=== PATIENT | female | born 1940 | race Caucasian/White ===

== ENCOUNTER 2019-05-20 18:30 | Inpatient (IN) | payer OTHER ==
--- NOTE | 2019-05-20 19:45 | PDOC ---
History of Present Illness - General Chief Complaint: Weakness Stated Complaint: WEAKNESS History Source: Patient, Family (daughter, granddaughters) Exam Limitations: Dementia, Language Barrier - History of Present Illness Initial Comments: 05/20/19 19:40 78yo F with PMH of DM, HTN, HLD, Arthritis, PAD?, Thyroid Goiter? medical history presenting to ED for weakness. Patient was at home in her usual state of health and around 1630 went to sit outside. Great granddaughter went to check on patient 30m later and saw that she was slumped over and weak. Patient recently moved here from [place] 1m ago and has not had health care here due to insurance problems. She has been without her medications during this period of time. Patient was living with one of her daughters in a hotel in [place]. Patient says she feels tired. Great granddaughter also noticed dark stools 3d ago. Denies abdominal pain, chest pain, sob, headache, changes in vision, numbness/tingling, fever, chills, n/v/d. No use of NSAIDs. PMD: none PMH: see hpi PSH: appendectomy Allergies: nkda Social: denies Meds: unknown Great Granddaughter: Lisa [phone] Granddaughter: Lidia [phone] Past History - Past Medical History Allergies/Adverse Reactions: Allergies Allergy/AdvReac Type Severity Reaction Status Date / Time No Known Allergies Allergy Verified 05/20/19 18:55 Asthma: Yes COPD: No Diabetes: Yes HTN: Yes - Suicide/Smoking/Psychosocial Hx Smoking History: Never smoked Have you smoked in the past 12 months: No Information on smoking cessation initiated: No Hx Alcohol Use: No Drug/Substance Use Hx: No Review of Systems - Review of Systems Constitutional: Yes: Weakness. No: Chills, Fever HEENTM: No: Symptoms Reported Respiratory: No: Cough, Shortness of Breath Cardiac (ROS): Yes: Lightheadedness. No: Chest Pain, Palpitations, Syncope, Chest Tightness : No: Symptoms Reported Musculoskeletal: No: Symptoms Reported Integumentary: No: Symptoms Reported Neurological: No: Symptoms reported *Physical Exam - Vital Signs Last Vital Signs Temp Pulse Resp BP Pulse Ox 98.3 F 99 H 16 136/75 100 05/20/19 18:40 05/20/19 18:40 05/20/19 18:40 05/20/19 18:40 05/20/19 18:40 - Physical Exam General Appearance: Yes: Appropriately Dressed, Obese. No: Apparent Distress HEENT: positive: EOMI, BRISA, Pale Conjunctivae, Other (dry oral mucosa) Neck: positive: Trachea midline, Supple. negative: Lymphadenopathy (R), Lymphadenopathy (L) Respiratory/Chest: positive: Lungs Clear, Normal Breath Sounds Cardiovascular: positive: Regular Rhythm, Regular Rate, S1, S2, Systolic Murmur. negative: Edema, JVD Vascular Pulses: Dorsalis-Pedis (R): 1+, Doralis-Pedis (L): 1+ Gastrointestinal/Abdominal: positive: Normal Bowel Sounds, Soft. negative: Tender, Distended, Guarding, Rebound, Tenderness, Hernia Rectal Exam: positive: normal rectal tone, melena. negative: hemorrhoids Musculoskeletal: negative: CVA Tenderness Extremity: negative: Normal Capillary Refill, Swelling, Calf Tenderness Integumentary: positive: Dry, Warm. 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 negative: Fully Oriented (baseline) ED Treatment Course - LABORATORY CBC & Chemistry Diagram: 05/20/19 19:55 05/20/19 19:55 - RADIOLOGY Radiology Studies Ordered: Category Date Time Status CHEST X-RAY PORTABLE* [RAD] Stat Radiology 05/20/19 19:34 Ordered Medical Decision Making - Medical Decision Making 05/20/19 19:43 78yo F with unknown medical history presenting to ED for weakness. Patient was at home in her usual state of health and around 1630 went to sit outside. Granddaughter went to check on patient 30m later and saw that she was slumped over and weak. Patient recently moved here from [place] 1m ago and has not had health care here due to insurance problems. She has been without her medications during this period of time. Patient was living with one of her daughters in a hotel in [place]. Patient says she feels tired. Granddaughter also noticed dark stools on a few occasions. Denies abdominal pain, chest pain, sob, headache, changes in vision, numbness/tingling, fever, chills, n/v/d. Vitals: hr 99, afebrile, normotensive ddx includes but not limited to gi bleed, acs, anemia, cva/tia, infection, heat exhaustion, electrolyte abnormality, metabolic disturbance, malignancy will order labs, ts, guaiac, cxr, ekg, ua, ucx. iv fluids will obtain collateral from family Per daughter who is in [place], patient was with her and her son, but there was a fallout with the son. She will try to send over documents to great granddaughter. ekg; sinus at 94bpm, per 372? qtc 477. diffuse st depressions in percodial annd lateral leads, no reciprocal madina. hgb 6.5, will start transfusion, family consented. pepcid bolus. labs show k 2.5, will give KCl. Trop 0.48 with normal CK-MB, likely 2/2/ demand. will repeat ekg. cr 1.9 (no priors) likley 2/2 bleed; is getting hydration and prbc's ua positive for infection, will start ceftriaxone. angle admit for gi bleed, anemia 2/2 gi bleed and uti. vitals hav been stable, pt has not been hypotensive, she is awake and alert. 05/20/19 22:35 rpt ekg: sinus, regular rhythm. no madina. depressions still noted in lateal leads however less pronouced. no madina . accepted by hospitalist. 05/20/19 22:40 *DC/Admit/Observation/Transfer Diagnosis at time of Disposition: GI bleed Qualifiers: GI bleed type/associated pathology: melena Qualified Code(s): K92.1 - Melena Anemia Qualifiers: Anemia type: unspecified type Qualified Code(s): D64.9 - Anemia, unspecified UTI (urinary tract infection) Qualifiers: Urinary tract infection type: site unspecified Hematuria presence: without hematuria Qualified Code(s): N39.0 - Urinary tract infection, site not specified - Discharge Dispostion Condition at time of disposition: Stable Decision to Admit order: Yes - Referrals Referrals: Greyson Avendaño MD [Primary Care Provider] - - Patient Instructions - Post Discharge Activity
[2019-05-20 20:15] LABS: BASO % 0.7 % (0-2.0); EOS % 1.4 % (0-4.5); LYMPH % 4.9 % (8-40); MCH 24.7 pg (25.7-33.7); MCHC 30.8 g/dl (32.0-36.0); MEAN CELL VOLUME 80.2 fl (80-96); MEAN PLT VOLUME 8.6 fl (7.5-11.1); MONO % 6.7 % (3.8-10.2); NEUT % 86.3 % (42.8-82.8); PLATELET COUNT 155 K/MM3 (134-434); RBC 2.63 M/mm3 (3.60-5.2); RDW 18.2 % (11.6-15.6); WHITE BLOOD COUNT 6.5 K/mm3 (4.0-10.0)
[2019-05-20] MEDS ORDERED: PANTOPRAZOLE SODIUM 40 MG VIAL IVPUSH ONE (20:22)
[2019-05-20] MEDS ORDERED: SODIUM CHLORIDE 1,000 ML IV STA (20:23)
[2019-05-20 20:30] LABS: HEMATOCRIT 21.1 % (32.4-45.2); HEMOGLOBIN 6.5 GM/dL (10.7-15.3)
[2019-05-20 20:36] LABS: INR 1.08 (0.83-1.09); PROTHROMBIN TIME (PATIENT) 12.7 SEC (9.7-13.0)
[2019-05-20] MEDS ORDERED: PANTOPRAZOLE SODIUM 40 MG/100 ML BAG IVPB ONE (20:36)
[2019-05-20 20:55] LABS: ALBUMIN 3.7 g/dl (3.4-5.0); BILIRUBIN,TOTAL 0.3 mg/dL (0.2-1); BLOOD UREA NITROGEN 13.6 mg/dL (7-18); CALCIUM 8.6 mg/dL (8.5-10.1); CREATININE 1.9 mg/dL (0.55-1.3); MAGNESIUM 2.3 mg/dL (1.8-2.4); TOT PROT 7.8 g/dl (6.4-8.2)
[2019-05-20 20:58] LABS: POTASSIUM 2.5 mmol/L (3.5-5.1)
--- NOTE | 2019-05-20 21:22 | PDOC ---
Documentation entered by Yulisa Bradley SCRIBE, acting as scribe for Xiao Whittington DO. Xiao Whittington DO: This documentation has been prepared by the Mirna trammell Adrianna, SCRIBE, under my direction and personally reviewed by me in its entirety. I confirm that the documentation accurately reflects all work, treatment, procedures, and medical decision making performed by me. Attending Attestation - Resident Resident Name: Jazmyne Roberto - ED Attending Attestation I have performed the following: I have examined & evaluated the patient, The case was reviewed & discussed with the resident, I agree w/resident's findings & plan - HPI HPI: The patient is an 78 year old female, with unknown medical history, who presents to the ED for evaluation of dark stool for one week, and weakness for one day. Patient was sitting outside earlier today, and was found by her granddaughter a half hour later slumped over and malaised. She reports feeling fatigued while in the ED. Granddaughter also notes dark, tarry stools over the past week. Allergies: NKA, NKDA PCP: Dr. Avendaño - Physicial Exam PE: Agree with resident exam. - Medical Decision Making 05/20/19 21:21 78-year-old female with chief complaint of weakness recently relocated from [place] Labs positive for significant anemia requiring transfusion Patient's EKG shows LVH with strain pattern, unfortunately there is no old available for comparison Troponin is positive Blood transfusion to be administered from the emergency department with admission to medical service for further management
[2019-05-20 21:25] LABS: HYALINE CASTS 49 /lpf (0-8); URINE APPEARANCE CLOUDY; URINE BACTERIA 8600.1 /hpf (NEGATIVE); URINE BILIRUBIN NEGATIVE (NEGATIVE); URINE COLOR YELLOW; URINE GLUCOSE (UA) NEGATIVE (NEGATIVE); URINE KETONE NEGATIVE (NEGATIVE); URINE LEUK ESTERASE 2+ (NEGATIVE); URINE NITRITE POSITIVE (NEGATIVE); URINE PROTEIN 1+ (NEGATIVE); URINE RBC 1 /hpf (0-4); URINE WBC 84 /hpf (0-5)
[2019-05-20] MEDS ORDERED: KCL 10 MEQ IVPB 10 MEQ/100 ML INFUS.BAG IVPB ONE (21:41)
[2019-05-20] MEDS ORDERED: CEFTRIAXONE 1 GM in DEXTROSE 5%-WATER - 100 ML IVPB ONE (21:48)
[2019-05-20] MEDS: KCL 10 MEQ IVPB 10 MEQ/100 ML INFUS.BAG IVPB SCH ×2 (22:16→22:43)
[2019-05-20] MEDS ORDERED: CEFTRIAXONE 1 GM/50 ML BAG ONE (22:48)
[2019-05-21] MEDS ORDERED: KCL 10 MEQ IVPB 10 MEQ/100 ML INFUS.BAG IVPB ONE ×4 (00:34→18:25)
[2019-05-21] MEDS: KCL 10 MEQ IVPB 10 MEQ/100 ML INFUS.BAG IVPB SCH ×4 (00:41→18:27)
[2019-05-21 05:44] LABS: BASO % 0.3 % (0-2.0); EOS % 2.4 % (0-4.5); HEMATOCRIT 22.4 % (32.4-45.2); HEMOGLOBIN 7.3 GM/dL (10.7-15.3); LYMPH % 15.9 % (8-40); MCH 26.7 pg (25.7-33.7); MCHC 32.8 g/dl (32.0-36.0); MEAN CELL VOLUME 81.3 fl (80-96); MEAN PLT VOLUME 8.7 fl (7.5-11.1); MONO % 6.2 % (3.8-10.2); NEUT % 75.2 % (42.8-82.8); PLATELET COUNT 144 K/MM3 (134-434); RBC 2.75 M/mm3 (3.60-5.2); RDW 17.3 % (11.6-15.6); WHITE BLOOD COUNT 5.9 K/mm3 (4.0-10.0)
--- NOTE | 2019-05-21 06:45 | HP ---
Admitting History and Physical - Primary Care Physician PCP: Greyson Avendaño S - Admission Chief Complaint: Near Syncope History of Present Illness: This is a 78 y/o woman with a PMHx of DM, HTN, HLD, Arthritis, PAD?, Thyroid Goiter? medical history presenting to ED for weakness. Patient was at home in her usual state of health and around 1630 went to sit outside. Great granddaughter went to check on patient 30m later and saw that she was slumped over and weak. Patient recently moved here from [place] 1m ago and has not had health care here due to insurance problems. She has been without her medications during this period of time. Patient was living with one of her daughters in a hotel in [place]. Patient says she feels tired. Great granddaughter also noticed dark stools 3d ago. Denies abdominal pain, chest pain , sob, headache, changes in vision, numbness/tingling, fever, chills, n/v/d. No use of NSAIDs. History Source: Family Member Limitations to Obtaining History: Clinical Condition, Language Barrier (Yoruba speaking) - Past Medical History Cardiovascular: Yes: HTN, Hyperlipdemia, Other (PAD) Musculoskeletal: Yes: Osteoarthritis Endocrine: Yes: Diabetes Mellitus - Past Surgical History Past Surgical History: Yes: Cholecystectomy Additional Past Surgical History: C- Section - Smoking History Smoking history: Never smoked Have you smoked in the past 12 months: No - Alcohol/Substance Use Hx Alcohol Use: No History of Substance Use: reports: None - Social History Usual Living Arrangement: Yes: With Child ADL: Family Assistance History of Recent Travel: Yes ([place]) Home Medications - Allergies Allergies/Adverse Reactions: Allergies Allergy/AdvReac Type Severity Reaction Status Date / Time No Known Allergies Allergy Verified 05/20/19 18:55 - Home Medications Home Medications: Ambulatory Orders Albuterol 2.5/Ipratropium 0.5 [Duoneb -] 1 amp NEB Q6H PRN #0 amp 05/27/19 Amlodipine Besylate [Norvasc -] 5 mg PO DAILY tablet 05/27/19 Cefuroxime Axetil [Ceftin -] 500 mg PO Q12H #10 tablet 05/27/19 Ferrous Sulfate [Feosol] 325 mg PO BIDWM ud 05/27/19 Insulin Sliding Scale [Novolog Vial Sliding Scale -] 1 vial SQ TIDAC units Levothyroxine [Synthroid -] 50 mcg PO DAILY@0700 tablet 05/27/19 Pantoprazole Sodium [Protonix -] 40 mg PO BID tablet.ec 05/27/19 Family Disease History - Family Disease History Family History: Unable to Obtain Review of Systems Unable to obtain ROS, reason: Clinical Condition Physical Examination Vital Signs: Vital Signs Temperature 97.2 F L 05/21/19 05:30 Pulse Rate 56 L 05/21/19 05:30 Respiratory Rate 12 05/21/19 05:30 Blood Pressure 166/59 L 05/21/19 05:30 O2 Sat by Pulse Oximetry (%) 97 05/21/19 05:30 Constitutional: Yes: No Distress, Calm Eyes: Yes: WNL, Conjunctiva Clear, EOM Intact, PERRL HENT: Yes: WNL, Atraumatic, Normocephalic Neck: Yes: WNL, Supple, Trachea Midline Cardiovascular: Yes: WNL, Regular Rate and Rhythm, S1, S2 Respiratory: Yes: WNL, Regular, CTA Bilaterally Gastrointestinal: Yes: Normal Bowel Sounds, Soft, Other (RUQ Scar) ...Rectal Exam: Yes: Deferred (patient declined) Renal/: Yes: Incontinence Breast(s): Yes: WNL Musculoskeletal: Yes: WNL Extremities: Yes: WNL Edema: No Peripheral Pulses WNL: Yes Neurological: Yes: Alert, Confusion, Cran Nerves II-XII Intact ...Motor Strength: WNL Psychiatric: Yes: Alert Labs: CBC, BMP 05/21/19 05:26 05/20/19 19:55 Imaging - Results Chest X-ray: Image Reviewed EKG: Image Reviewed Problem List - Problems (1) GI bleed Code(s): K92.2 - GASTROINTESTINAL HEMORRHAGE, UNSPECIFIED Qualifiers: GI bleed type/associated pathology: melena Qualified Code(s): K92.1 - Melena (2) Anemia Code(s): D64.9 - ANEMIA, UNSPECIFIED Qualifiers: Anemia type: unspecified type Qualified Code(s): D64.9 - Anemia, unspecified (3) Near syncope Code(s): R55 - SYNCOPE AND COLLAPSE (4) HAILE (acute kidney injury) Code(s): N17.9 - ACUTE KIDNEY FAILURE, UNSPECIFIED (5) HTN (hypertension) Code(s): I10 - ESSENTIAL (PRIMARY) HYPERTENSION (6) HLD (hyperlipidemia) Code(s): E78.5 - HYPERLIPIDEMIA, UNSPECIFIED Assessment/Plan This is a 78 y/o woman admitted to Telemetry for GI Bleed, Near Syncope. Plan: Admit to Telemetry Cardiac Monitoring Serial Enzymes Echo Serial CBCs Appreciate GI Consult Appreciate Cardiology consult Appreciate Nephrology consult Appreciate Hematology consult +Stool Occult PRBCs ordered- given in ED Protonix IV Hold home medications for now Fall Precautions FEN NS fluids Replete lytes prn NPO DVT ppx SCDs Hold AC secondary to GIB Dispo: Requires Inpatient Care Visit type - Emergency Visit Emergency Visit: Yes ED Registration Date: 05/20/19 Care time: The patient presented to the Emergency Department on the above date and was hospitalized for further evaluation of their emergent condition. - New Patient This patient is new to me today: Yes Date on this admission: 05/20/19 - Critical Care Critical Care patient: No
[2019-05-21 08:44] LABS: ALBUMIN 3.4 g/dl (3.4-5.0); BILIRUBIN,TOTAL 0.5 mg/dL (0.2-1); BLOOD UREA NITROGEN 13.1 mg/dL (7-18); CALCIUM 8.2 mg/dL (8.5-10.1); CREATININE 1.7 mg/dL (0.55-1.3); PHOSPHOROUS 2.6 mg/dL (2.5-4.9); TOT PROT 7.4 g/dl (6.4-8.2)
--- NOTE | 2019-05-21 08:46 | PN ---
Progress Note (short form) - Note Progress Note: Patient will be transferred to service team for management of care.
--- NOTE | 2019-05-21 09:50 | EKG ---
Test Reason : Blood Pressure : / mmHG Vent. Rate : 070 BPM Atrial Rate : 070 BPM P-R Int : 000 ms QRS Dur : 100 ms QT Int : 480 ms P-R-T Axes : 000 003 -18 degrees QTc Int : 518 ms nsr 1st degree AVB MODERATE VOLTAGE CRITERIA FOR LVH, MAY BE NORMAL VARIANT ABNORMAL ECG WHEN COMPARED WITH ECG OF 20-MAY-2019 18:47, Confirmed by GABRIELA PIERRE, EVA ([id number]) on 05/21/2019 9:49:42 AM Referred By: Confirmed By:EVA OCHOA MD
--- NOTE | 2019-05-21 10:17 | EKG ---
Test Reason : Blood Pressure : / mmHG Vent. Rate : 094 BPM Atrial Rate : 094 BPM P-R Int : 372 ms QRS Dur : 104 ms QT Int : 382 ms P-R-T Axes : 025 -01 -27 degrees QTc Int : 477 ms SINUS RHYTHM WITH 1ST DEGREE A-V BLOCK LEFT VENTRICULAR HYPERTROPHY WITH REPOLARIZATION ABNORMALITY ABNORMAL ECG NO PREVIOUS ECGS AVAILABLE Confirmed by EVA OCHOA MD ([id number]) on 05/21/2019 10:17:04 AM Referred By: Confirmed By:EVA OCHOA MD
[2019-05-21] MEDS ORDERED: cefTRIAXone SODIUM 1 GM VIAL ONE (10:40)
[2019-05-21] MEDS: PANTOPRAZOLE SODIUM 40 MG VIAL IVPUSH SCH (10:57)
[2019-05-21] MEDS: CEFTRIAXONE 1 GM in DEXTROSE 5%-WATER 100 ML IVPB SCH (10:57)
--- NOTE | 2019-05-21 11:18 | PN ---
Progress Note, Physician Chief Complaint: GI bleed UTI Hypothyroidism HAILE History of Present Illness: NAD Seen by GI getting 2nd unit of PRBC - Current Medication List Current Medications: Active Medications Ferrous Sulfate (Feosol -) 325 mg PO DAILY CAROLEE Ceftriaxone Sodium 1 gm/ (Dextrose) 100 mls @ 200 mls/hr IVPB DAILY CAROLEE; Protocol Last Admin: 05/21/19 10:57 Dose: 200 mls/hr Pantoprazole Sodium (Protonix Iv) 40 mg IVPUSH DAILY CAROLEE Last Admin: 05/21/19 10:57 Dose: 40 mg - Objective Vital Signs: Vital Signs Temperature 97.4 F L 05/21/19 09:00 Pulse Rate 51 L 05/21/19 09:00 Respiratory Rate 14 05/21/19 09:00 Blood Pressure 154/54 L 05/21/19 09:00 O2 Sat by Pulse Oximetry (%) 96 05/21/19 07:07 Constitutional: Yes: Well Nourished, No Distress, Calm Cardiovascular: Yes: Regular Rate and Rhythm Respiratory: Yes: Regular Gastrointestinal: Yes: Normal Bowel Sounds, Soft Genitourinary: Yes: WNL Musculoskeletal: Yes: Muscle Weakness Extremities: Yes: WNL Edema: No Peripheral Pulses WNL: Yes Neurological: Yes: Alert, Oriented Psychiatric: Yes: Alert, Oriented Labs: CBC, BMP 05/21/19 05:26 05/21/19 07:30 INR, PTT INR 1.08 (0.83-1.09) 05/20/19 19:55 Problem List - Problems (1) Anemia Assessment/Plan: -Guaiac positive -GI consult -PRBC 2 units -monitor H/H closely -NAUN -Started on Ferrous sulfate Code(s): D64.9 - ANEMIA, UNSPECIFIED Qualifiers: Anemia type: unspecified type Qualified Code(s): D64.9 - Anemia, unspecified (2) GI bleed Assessment/Plan: -Guaiac positive -GI consult -PRBC 2 units -monitor H/H closely Code(s): K92.2 - GASTROINTESTINAL HEMORRHAGE, UNSPECIFIED Qualifiers: GI bleed type/associated pathology: melena Qualified Code(s): K92.1 - Melena (3) UTI (urinary tract infection) Assessment/Plan: -UA+nitrites -UC pending -Started on Rocephin -afebrile -no leukocytosis Code(s): N39.0 - URINARY TRACT INFECTION, SITE NOT SPECIFIED Qualifiers: Urinary tract infection type: site unspecified Hematuria presence: without hematuria Qualified Code(s): N39.0 - Urinary tract infection, site not specified (4) HAILE (acute kidney injury) Assessment/Plan: -Nephrology consult -monitor trend -2/2 to UTI? Code(s): N17.9 - ACUTE KIDNEY FAILURE, UNSPECIFIED (5) Hypokalemia Assessment/Plan: -KCL 10 meq x 3 -KCL 40 meq po once -monitor trend and replace Code(s): E87.6 - HYPOKALEMIA (6) Hypothyroid Assessment/Plan: -Start levothyroxine 25 mcg po daily -repeat thyroid profile in 6-8 weeks Code(s): E03.9 - HYPOTHYROIDISM, UNSPECIFIED Assessment/Plan see problem list SCD's PPI
--- NOTE | 2019-05-21 11:53 | EKG ---
Test Reason : Blood Pressure : / mmHG Vent. Rate : 051 BPM Atrial Rate : 061 BPM P-R Int : 000 ms QRS Dur : 102 ms QT Int : 500 ms P-R-T Axes : 000 014 204 degrees QTc Int : 460 ms nsr 1st degree avb LEFT VENTRICULAR HYPERTROPHY WITH REPOLARIZATION ABNORMALITY ABNORMAL ECG Confirmed by GABRIELA PIERRE, EVA ([id number]) on 05/21/2019 11:53:18 AM Referred By: Confirmed By:EVA OCHOA MD
--- NOTE | 2019-05-21 12:03 | ECHO ---
Name: RADHA MCCARTHY I Exam:Adult Echocardiogram Study Date: 05/21/2019 08:27 AM Age: 78 yrs Reason For Study: near SYNCOPE Height: 59 in Weight: 160 lb BSA: 1.7 m2 MMode/2D Measurements & Calculations IVSd: 1.2 cm Ao root diam: 2.4 cm LVIDd: 4.3 cm LA dimension: 3.8 cm LVIDs: 3.0 cm LVPWd: 1.3 cm LVPWs: 1.4 cm EDV(Teich): 84.6 ml ESV(Teich): 35.3 ml LVOT diam: 2.1 cm Doppler Measurements & Calculations MV E max matt: 71.6 cm/sec Ao V2 max: 161.3 cm/sec MV A max matt: 82.4 cm/sec Ao max P.5 mmHg MV E/A: 0.87 Ao V2 mean: 103.7 cm/sec MV dec time: 0.27 sec Ao mean P.3 mmHg Ao V2 VTI: 35.6 cm ROSLYN(I,D): 2.0 cm2 AI P1/2t: 520.2 msec ROSLYN(V,D): 1.7 cm2 AI max matt: 253.4 cm/sec LV V1 max P.7 mmHg AI max P.7 mmHg LV V1 mean P.5 mmHg AI dec slope: 142.7 cm/sec2 LV V1 max: 81.9 cm/sec LV V1 mean: 54.0 cm/sec LV V1 VTI: 21.3 cm SV(LVOT): 73.0 ml PA V2 max: 101.8 cm/sec PA max P.2 mmHg Med Peak E' Matt: 4.6 cm/sec Med E/e': 15.5 Lat Peak E' Matt: 5.4 cm/sec Lat E/e': 13.3 Procedure The study was technically difficult with many images being suboptimal in quality. Left Ventricle There is moderate concentric left ventricular hypertrophy. The left ventricular ejection fraction is normal. E/A reversal consistent with but not diagnostic of poor LV compliance. Regional wall motion abnormali ties cannot be excluded due to limited visualization. Right Ventricle The right ventricle is not well visualized. Atria Normal left and right atrial size and function. Mitral Valve The mitral valve is not well visualized. There is no mitral valve stenosis. There is trace to mild mi tral regurgitation. Tricuspid Valve The tricuspid valve is not well visualized. There is no tricuspid stenosis. There was insufficient TR detected to calculate RV systolic pressure. Aortic Valve The aortic valve is not well visualized. There is moderate aortic valve thickening. No hemodynamicall y significant valvular aortic stenosis. Moderate aortic regurgitation. Pulmonic Valve The pulmonic valve is not well visualized. Great Vessels The aortic root is normal size. Pericardium/Pleura There is a moderate pericardial effusion. The echo/Doppler findings are inconclusive for cardiac tamp onade. Interpretation Summary Clinical correlation is recommended. There is moderate concentric left ventricular hypertrophy. The left ventricular ejection fraction is normal. There is a moderate pericardial effusion. The echo/Doppler findings are inconclusive for cardiac tamponade. E/A reversal consistent with but not diagnostic of poor LV compliance Regional wall motion abnormalities cannot be excluded due to limited visualization. There is moderate aortic valve thickening. The aortic valve is not well visualized. Moderate aortic regurgitation. The study was technically difficult with many images being suboptimal in quality. The right ventricle is not well visualized. There is trace to mild mitral regurgitation. There was insufficient TR detected to calculate RV systolic pressure. Clinical correlation is recommended. MD Caleb Nelson 05/21/2019 12:03 PM
[2019-05-21] MEDS ORDERED: POTASSIUM CHLORIDE TABS 20 MEQ TABLET.ER (FP) PO ONE (12:28)
[2019-05-21] MEDS ORDERED: FERROUS SO4 325 MG TABLET (FP) ONE (12:29)
[2019-05-21] MEDS: POTASSIUM CHLORIDE TABS 20 MEQ TABLET.ER (FP) PO ONE ×2 (12:32→12:34)
[2019-05-21] MEDS: FERROUS SO4 325 MG TABLET (FP) PO SCH ×3 (12:32→18:38)
--- NOTE | 2019-05-21 12:49 | CONSULT ---
Consult Consult Specialty:: Nephrology Reason for Consultation:: HAILE - History of Present Illness Chief Complaint: near syncope History of Present Illness: Pt is an 78 year old female with pmhx of dm, HTN, HLD, arthritis, hypothyroidism , and PAD who presents to the ER with near syncope. SHe was found to have elevated creatinine and I was called to evaluate her. She denies history of CKD. She recently moved here from [place] about a month ago and has not taken any of her meds since. SHe was also found to be anemic and hypokalemic. She denies shortness of breath. She denies abd pain. SHe denies hematuria or dysuria. SHe denies nsaid use. - History Source History Provided By: Patient, Medical Record - Past Medical History Cardio/Vascular: Yes: HTN, Hyperlipdemia, Other (PAD) Musculoskeletal: Yes: Osteoarthritis Endocrine: Yes: Diabetes Mellitus, Hypothyroidism - Alcohol/Substance Use Hx Alcohol Use: No History of Substance Use: reports: None - Smoking History Smoking history: Never smoked Have you smoked in the past 12 months: No - Social History ADL: Family Assistance History of Recent Travel: Yes ([place]) Home Medications - Allergies Allergies/Adverse Reactions: Allergies Allergy/AdvReac Type Severity Reaction Status Date / Time No Known Allergies Allergy Verified 05/20/19 18:55 Family Disease History - Family Disease History Family History: Denies Review of Systems - Review of Systems Constitutional: reports: Malaise Eyes: reports: No Symptoms HENT: reports: No Symptoms Neck: reports: No Symptoms Cardiovascular: reports: No Symptoms Respiratory: reports: No Symptoms Gastrointestinal: reports: No Symptoms Genitourinary: reports: No Symptoms Musculoskeletal: reports: No Symptoms Integumentary: reports: No Symptoms Neurological: reports: Syncope Endocrine: reports: No Symptoms Hematology/Lymphatic: reports: No Symptoms Psychiatric: reports: No Symptoms Physical Exam Vital Signs: Vital Signs Temperature 97.4 F L 05/21/19 09:00 Pulse Rate 51 L 05/21/19 09:00 Respiratory Rate 14 05/21/19 09:00 Blood Pressure 154/54 L 05/21/19 09:00 O2 Sat by Pulse Oximetry (%) 96 05/21/19 07:07 Constitutional: Yes: Calm Eyes: Yes: Conjunctiva Clear HENT: Yes: Atraumatic Neck: Yes: Supple Cardiovascular: Yes: S1, S2 Respiratory: Yes: CTA Bilaterally Gastrointestinal: Yes: Normal Bowel Sounds, Soft Renal/: Yes: WNL Musculoskeletal: Yes: WNL Edema: No Neurological: Yes: Oriented Psychiatric: Yes: Oriented Labs: CBC, BMP 05/21/19 05:26 05/21/19 07:30 Laboratory Tests 05/20/19 05/20/19 05/20/19 19:55 19:55 19:55 Hgb 6.5 L* Sodium 139 Potassium 2.5 L* Creatinine 1.9 H Iron 22 L Iron Saturation 4 L Creatine Kinase 474 H TSH 91.80 H 05/21/19 05/21/19 05:26 07:30 Hgb 7.3 L Sodium 141 Potassium 3.0 L Creatinine 1.7 H Iron Iron Saturation Creatine Kinase 524 H TSH Imaging - Results Chest X-ray: Report Reviewed Problem List - Problems (1) HAILE (acute kidney injury) Code(s): N17.9 - ACUTE KIDNEY FAILURE, UNSPECIFIED (2) Hypokalemia Code(s): E87.6 - HYPOKALEMIA (3) Hypothyroid Code(s): E03.9 - HYPOTHYROIDISM, UNSPECIFIED (4) Anemia Code(s): D64.9 - ANEMIA, UNSPECIFIED Qualifiers: Anemia type: unspecified type Qualified Code(s): D64.9 - Anemia, unspecified Assessment/Plan Current Medications Generic Name Dose Route Start Last Admin Trade Name Freq PRN Reason Stop Dose Admin Ferrous Sulfate 325 mg 05/21/19 11:15 05/21/19 12:34 Feosol - PO Not Given DAILY CAROLEE Ceftriaxone Sodium 1 gm/ 100 mls @ 200 mls/hr 05/21/19 10:00 05/21/19 10:57 Dextrose IVPB 200 mls/hr DAILY CAROLEE Administration Protocol Potassium Chloride 10 meq in 100 mls @ 100 mls/hr 05/21/19 11:15 05/21/19 12: 32 Potassium Chloride 10 Meq Premix Ivpb - IVPB 05/21/19 14:14 100 mls/hr Q60M CAROLEE Administration Pantoprazole Sodium 40 mg 05/21/19 10:00 05/21/19 10:57 Protonix Iv IVPUSH 40 mg DAILY CAROLEE Administration Impression 1. HAILE 2. hypokalemia 3. uti 4. near syncope 5. hypothyroid with elevated tsh 6. DM 7. HTN 8. arthritis 9. 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
--- NOTE | 2019-05-21 14:42 | CON.CARD ---
Consult Consult Specialty:: Cardiology Referred by:: Dr. Sales Reason for Consultation:: Elevated troponin - History of Present Illness Chief Complaint: Severe weakness and near syncope History of Present Illness: 78 year-old woman with a PMHx of DM, HTN, HLD, arthritis, PAD, thyroid goiter presented to ED 05/20/19 with weakness. The patient was found severe weakness at home. Patient recently moved here from [place] 1m ago and has not had health care here due to insurance problems. She has been without her medications during this period of time. She feels tired recently. She noticed dark stools 3 day ago. She denies abdominal pain, chest pain, sob, headache, changes in vision, numbness/tingling, fever, chills, n/v/ d. No use of NSAIDs. She was found to have elevated CK with negative MB and elevated troponin 0.48 - > 0.58. Severe anemia (6.5/21.1), impaired renal function and severe hypokalemia (2.5) noted. ECG showed lateral and inferolateral ischemia in the setting of LVH. CXR revealed cardiomegaly. Echo 05/21/19 showed moderate pericardial effusion. Moderate LVH with normal LVEF. Thickened AV with moderate AI. She received 2 units of PRBCs in ED. She appears comfortable at time of exam. She denies chest pain, SOB, palpitation or dizziness. She was lying flat without SOB. - History Source History Provided By: Patient, Family Member, Medical Record Limitations to Obtaining History: No Limitations - Past Medical History Cardio/Vascular: Yes: HTN, Hyperlipdemia, Other (PAD) Musculoskeletal: Yes: Osteoarthritis Endocrine: Yes: Diabetes Mellitus - Alcohol/Substance Use Hx Alcohol Use: No History of Substance Use: reports: None - Smoking History Smoking history: Never smoked Have you smoked in the past 12 months: No - Social History ADL: Family Assistance History of Recent Travel: Yes ([place]) Home Medications - Allergies Allergies/Adverse Reactions: Allergies Allergy/AdvReac Type Severity Reaction Status Date / Time No Known Allergies Allergy Verified 05/20/19 18:55 Review of Systems - Review of Systems Constitutional: reports: Lethargy, Weakness Eyes: reports: No Symptoms HENT: reports: No Symptoms Neck: reports: No Symptoms Cardiovascular: reports: Other Respiratory: reports: No Symptoms Gastrointestinal: reports: Melena Genitourinary: reports: No Symptoms Breasts: reports: No Symptoms Reported Musculoskeletal: reports: No Symptoms Integumentary: reports: No Symptoms Neurological: reports: No Symptoms Endocrine: reports: No Symptoms Hematology/Lymphatic: reports: Other Psychiatric: reports: No Symptoms Vital Signs: Vital Signs Temperature 97.4 F L 05/21/19 09:00 Pulse Rate 51 L 05/21/19 09:00 Respiratory Rate 14 05/21/19 09:00 Blood Pressure 154/54 L 05/21/19 09:00 O2 Sat by Pulse Oximetry (%) 96 05/21/19 07:07 General: Well developed. Well nourished. No acute distress. Head: Normocephalic. Atraumatic, Eyes: PERRLA, EOMI. Sclerae anicteric. Pallor. Neck: Supple. No JVD. No bruits. Heart: Distant S1, S2: Regular rhythm and rate. No murmur. No gallop or rub. Lungs: Symmetrical air entry. Clear to auscultation. No crackles. No wheezing or rhonchi. Abdomen: Soft. Bowel sound positive. Non tender. No masses. Extremities: No edema. No clubbing or cyanosis. PD 2+, equal bilaterally. Neuro: Intact, no focal findings. AAO X3. - Other Data Labs, Other Data: CBC, BMP 05/21/19 05:26 05/21/19 07:30 INR, PTT INR 1.08 (0.83-1.09) 05/20/19 19:55 Troponin, BNP 05/20/19 05/21/19 19:55 07:30 Troponin I 0.48 H 0.58 H Troponin, BNP 05/20/19 05/21/19 19:55 07:30 Troponin I 0.48 H 0.58 H Assessment/Plan 78 year-old woman with a PMHx of DM, HTN, HLD, arthritis, PAD, thyroid goiter presented to ED 05/20/19 with weakness. The patient was found severe weakness at home. Patient recently moved here from [place] 1m ago and has not had health care here due to insurance problems. She has been without her medications during this period of time. She feels tired recently. She noticed dark stools 3 day ago. She denies abdominal pain, chest pain, sob, headache, changes in vision, numbness/tingling, fever, chills, n/v/ d. No use of NSAIDs. Elevated CK with negative MB and elevated troponin 0.48 -> 0.58. Severe anemia ( 6.5/21.1), impaired renal function and severe hypokalemia (2.5) noted. ECG showed lateral and inferolateral ischemia in the setting of LVH. CXR revealed cardiomegaly. She received 2 units of PRBCs in ED. Echo 05/21/19 showed moderate pericardial effusion. Moderate LVH with normal LVEF. Thickened AV with moderate AI. 1) Mildly elevated troponin and CK with negative MB: Likely due to pericarditis/ myocarditis. Demand ischemia may also play a role. But it is not acute coronary syndrome. She has risk factors of CAD with ECG evidence of ischemia. -Conservative cardiac care for now. -Ischemic workup in future as out-patient if it is indicated. 2) Moderate pericardial effusion without clinical evidence of tamponade. BP is elevated with mild sinus bradycardia. -Repeat echo in 2 weeks. -BP control: Start amlodipine 5 mg daily. Avoid beta priti or non- dihydropyridine calcium channel blockers because of bradycardia.
[2019-05-21] MEDS ORDERED: LEVOTHYROXINE SODIUM 100 MCG VIAL IVPUSH SCH (19:30)
[2019-05-21] MEDS ORDERED: amLODIPine BESYLATE 5 MG TABLET (FP) ONE (19:44)
[2019-05-21] MEDS: amLODIPine BESYLATE 2.5 MG TABLET (FP) PO SCH (19:46)
[2019-05-22] MEDS: ALBUTEROL SO4 2.5/IPRATROPIUM 0.5 INH SOL 3 ML VIAL.NEB. NEB PRN ×2 (02:51→19:55)
[2019-05-22] MEDS: amLODIPine BESYLATE 2.5 MG TABLET (FP) PO SCH ×2 (06:33→10:00)
[2019-05-22] MEDS ORDERED: LEVOTHYROXINE NA 25 MCG TABLET (FP) PO SCH (07:00)
[2019-05-22 07:53] LABS: ALBUMIN 4.1 g/dl (3.4-5.0); BILIRUBIN,TOTAL 0.6 mg/dL (0.2-1); BLOOD UREA NITROGEN 10.5 mg/dL (7-18); CALCIUM 8.9 mg/dL (8.5-10.1); CREATININE 1.6 mg/dL (0.55-1.3); POTASSIUM 3.5 mmol/L (3.5-5.1); TOT PROT 8.8 g/dl (6.4-8.2)
[2019-05-22 07:59] LABS: BASO % 0.8 % (0-2.0); EOS % 5.7 % (0-4.5); HEMATOCRIT 30.6 % (32.4-45.2); HEMOGLOBIN 10.1 GM/dL (10.7-15.3); LYMPH % 18.6 % (8-40); MCH 26.6 pg (25.7-33.7); MCHC 32.9 g/dl (32.0-36.0); MEAN CELL VOLUME 80.9 fl (80-96); MEAN PLT VOLUME 9.1 fl (7.5-11.1); MONO % 6.8 % (3.8-10.2); NEUT % 68.1 % (42.8-82.8); PLATELET COUNT 178 K/MM3 (134-434); RBC 3.78 M/mm3 (3.60-5.2); RDW 16.8 % (11.6-15.6); WHITE BLOOD COUNT 5.6 K/mm3 (4.0-10.0)
--- NOTE | 2019-05-22 08:23 | PN ---
Progress Note, Physician - Current Medication List Current Medications: Active Medications Albuterol/Ipratropium (Duoneb -) 1 amp NEB Q6H PRN PRN Reason: SHORTNESS OF BREATH Last Admin: 05/22/19 02:51 Dose: 1 amp Amlodipine Besylate (Norvasc -) 2.5 mg PO DAILY [facility] Last Admin: 05/22/19 06:33 Dose: 2.5 mg Ferrous Sulfate (Feosol -) 325 mg PO BIDWM [facility] Last Admin: 05/21/19 18:38 Dose: Not Given Ceftriaxone Sodium 1 gm/ (Dextrose) 100 mls @ 200 mls/hr IVPB [facility]ILY [facility]; Protocol Last Admin: 05/21/19 10:57 Dose: 200 mls/hr Levothyroxine Sodium (Synthroid -) 25 mcg PO DAILY@0700 [facility] Last Admin: 05/22/19 06:33 Dose: 25 mcg Pantoprazole Sodium (Protonix Iv) 40 mg IVPUSH DAILY [facility] Last Admin: 05/21/19 10:57 Dose: 40 mg Pneumococcal 13-Valent Conj Vacc (Prevnar 13 Syringe -) 0.5 ml IM .ONCE ONE Stop: 05/22/19 10:01 - Objective Vital Signs: Vital Signs Temperature 97.9 F 05/22/19 06:00 Pulse Rate 59 L 05/22/19 06:00 Respiratory Rate 20 05/22/19 06:00 Blood Pressure 193/93 H 05/22/19 06:00 O2 Sat by Pulse Oximetry (%) 98 05/21/19 21:00 Cardiovascular: Yes: Regular Rate and Rhythm Respiratory: Yes: Regular, CTA Bilaterally Gastrointestinal: Yes: Normal Bowel Sounds, Soft Labs: CBC, BMP 05/22/19 05:53 INR, PTT INR 1.08 (0.83-1.09) 05/20/19 19:55 Assessment/Plan Problems (1) Anemia Assessment/Plan: -Guaiac positive -GI consult -PRBC 2 units -monitor H/H closely -NAUN -Started on Ferrous sulfate Code(s): D64.9 - ANEMIA, UNSPECIFIED Qualifiers: Anemia type: unspecified type Qualified Code(s): D64.9 - Anemia, unspecified (2) GI bleed Assessment/Plan: -Guaiac positive -GI consult -PRBC 2 units -monitor H/H closely Code(s): K92.2 - GASTROINTESTINAL HEMORRHAGE, UNSPECIFIED Qualifiers: GI bleed type/associated pathology: melena Qualified Code(s): K92.1 - Melena (3) UTI (urinary tract infection) Assessment/Plan: -UA+nitrites -UC pending Microbiology 05/20/19 20:00 Urine - Urine - Catheterized Urine Culture - Preliminary Lactose Fermenting Neg Bacilli -Started on Rocephin -afebrile -no leukocytosis Code(s): N39.0 - URINARY TRACT INFECTION, SITE NOT SPECIFIED Qualifiers: Urinary tract infection type: site unspecified Hematuria presence: without hematuria Qualified Code(s): N39.0 - Urinary tract infection, site not specified (4) HAILE (acute kidney injury) Assessment/Plan: -Nephrology consult -monitor trend -2/2 to UTI? Code(s): N17.9 - ACUTE KIDNEY FAILURE, UNSPECIFIED (5) Hypokalemia Assessment/Plan: -KCL 10 meq x 3 -KCL 40 meq po once -monitor trend and replace Code(s): E87.6 - HYPOKALEMIA (6) Hypothyroid Assessment/Plan: -Start levothyroxine 25 mcg po daily -repeat thyroid profile in 6-8 weeks Code(s): E03.9 - HYPOTHYROIDISM, UNSPECIFIED
[2019-05-22] MEDS ORDERED: cefTRIAXone SODIUM 1 GM VIAL ONE (08:39)
[2019-05-22] MEDS ORDERED: DEXTROSE 5%-WATER 100 ML IVPB ONE (08:39)
[2019-05-22] MEDS: FERROUS SO4 325 MG TABLET (FP) PO SCH ×2 (08:57→17:23)
[2019-05-22] MEDS: CEFTRIAXONE 1 GM in DEXTROSE 5%-WATER 100 ML IVPB SCH (09:00)
[2019-05-22] MEDS: PANTOPRAZOLE SODIUM 40 MG VIAL IVPUSH SCH (09:01)
[2019-05-22] MEDS ORDERED: PNEUMOC 13-VAL CONJ-DIP CRM/PF 0.5 ML DISP.SYRIN IM ONE (10:00)
--- NOTE | 2019-05-22 13:33 | PN ---
Progress Note, Physician History of Present Illness: Pt seen and examined at bedside. She is awake and alert. She denies shortness of breath. - Current Medication List Current Medications: Active Medications Albuterol/Ipratropium (Duoneb -) 1 amp NEB Q6H PRN PRN Reason: SHORTNESS OF BREATH Last Admin: 05/22/19 02:51 Dose: 1 amp Amlodipine Besylate (Norvasc -) 2.5 mg PO DAILY [facility] Last Admin: 05/22/19 10:00 Dose: Not Given Ferrous Sulfate (Feosol -) 325 mg PO BIDWM [facility] Last Admin: 05/22/19 08:57 Dose: 325 mg Ceftriaxone Sodium 1 gm/ (Dextrose) 100 mls @ 200 mls/hr IVPB DAILY [facility]; Protocol Last Admin: 05/22/19 09:00 Dose: 200 mls/hr Levothyroxine Sodium (Synthroid -) 25 mcg PO DAILY@0700 [facility] Last Admin: 05/22/19 06:33 Dose: 25 mcg Pantoprazole Sodium (Protonix Iv) 40 mg IVPUSH DAILY [facility] Last Admin: 05/22/19 09:01 Dose: 40 mg - Objective Vital Signs: Vital Signs Temperature 98.7 F 05/22/19 10:00 Pulse Rate 55 L 05/22/19 10:00 Respiratory Rate 22 H 05/22/19 10:00 Blood Pressure 155/75 05/22/19 10:00 O2 Sat by Pulse Oximetry (%) 97 05/22/19 09:00 Constitutional: Yes: Calm HENT: Yes: WNL Neck: Yes: Supple Cardiovascular: Yes: S1, S2 Respiratory: Yes: CTA Bilaterally Gastrointestinal: Yes: Soft Genitourinary: Yes: WNL Musculoskeletal: Yes: WNL Extremities: Yes: WNL Edema: No Neurological: Yes: Oriented Psychiatric: Yes: Oriented Labs: CBC, BMP 05/22/19 05:53 05/22/19 05:53 INR, PTT INR 1.08 (0.83-1.09) 05/20/19 19:55 Problem List - Problems (1) HAILE (acute kidney injury) Code(s): N17.9 - ACUTE KIDNEY FAILURE, UNSPECIFIED (2) Hypokalemia Code(s): E87.6 - HYPOKALEMIA (3) Hypothyroid Code(s): E03.9 - HYPOTHYROIDISM, UNSPECIFIED (4) Anemia Code(s): D64.9 - ANEMIA, UNSPECIFIED Qualifiers: Anemia type: unspecified type Qualified Code(s): D64.9 - Anemia, unspecified Assessment/Plan Current Medications Generic Name Dose Route Start Last Admin Trade Name Freq PRN Reason Stop Dose Admin Albuterol/Ipratropium 1 amp 05/22/19 00:10 05/22/19 02:51 Duoneb - NEB 1 amp Q6H PRN Administration SHORTNESS OF BREATH Amlodipine Besylate 2.5 mg 05/21/19 19:30 05/22/19 10:00 Norvasc - PO Not Given DAILY [facility] Ferrous Sulfate 325 mg 05/21/19 17:30 05/22/19 08:57 Feosol - PO 325 mg BIDWM [facility] Administration Ceftriaxone Sodium 1 gm/ 100 mls @ 200 mls/hr 05/21/19 10:00 05/22/19 09:00 Dextrose IVPB 200 mls/hr DAILY [facility] Administration Protocol Levothyroxine Sodium 25 mcg 05/22/19 07:00 05/22/19 06:33 Synthroid - PO 25 mcg DAILY@0700 [facility] Administration Pantoprazole Sodium 40 mg 05/21/19 10:00 05/22/19 09:01 Protonix Iv IVPUSH 40 mg DAILY [facility] Administration Impression 1. HAILE 2. hypokalemia 3. uti 4. near syncope 5. hypothyroid with elevated tsh 6. DM 7. HTN 8. arthritis 9. anemia Plan - renal function is improving - repeat labs in am - cont abx - follow culture - check renal ultrasound - anemia workup per primary team
--- NOTE | 2019-05-22 18:21 | CON.GI ---
Consult Consult Specialty:: GI Referred by:: Jordyn Service Reason for Consultation:: GI bleed - History of Present Illness Chief Complaint: patient does not know why she is here History of Present Illness: 4W Nurse Martha provided [place] Interpretation as Ms. Jain speaks [place]. 78F brought to hospital by her family for evaluation of confusion. Noted to be anemic. Dark bowel movements described. There has been no overt bleeding. Transfused 2 U PRBC. She denies abdominal pain. She dioes not know why she is here. She knows she is in [place] but then states that she is in [place]. She states that she had drank alcohol and smoked crack cocaine in the past. She is receiving a nebulizer treatment. She does not know if she has ever had an upper endoscopy or colonoscopy. - History Source History Provided By: Patient, Medical Record Limitations to Obtaining History: Poor Historian - Past Medical History Cardio/Vascular: Yes: HTN, Hyperlipdemia, Other (PAD) Musculoskeletal: Yes: Osteoarthritis Endocrine: Yes: Diabetes Mellitus - Past Surgical History Past Surgical History: Yes: Cholecystectomy (open), - Alcohol/Substance Use Hx Alcohol Use: Yes History of Substance Use: reports: Cocaine (smoked crack) - Smoking History Smoking history: Never smoked Have you smoked in the past 12 months: No - Social History ADL: Family Assistance Place of : Other ([place]) History of Recent Travel: Yes ([place]) Home Medications - Allergies Allergies/Adverse Reactions: Allergies Allergy/AdvReac Type Severity Reaction Status Date / Time No Known Allergies Allergy Verified 05/20/19 18:55 Family Disease History - Family Disease History Other Family History: No family history of cancer that she is aware of Review of Systems Unable to obtain ROS, reason: Poor historian Physical Exam-GI Vital Signs: Vital Signs Temperature 97.7 F 05/22/19 14:00 Pulse Rate 54 L 05/22/19 14:00 Respiratory Rate 22 H 05/22/19 10:00 Blood Pressure 160/82 05/22/19 14:00 O2 Sat by Pulse Oximetry (%) 97 05/22/19 09:00 Constitutional: Yes: Calm Eyes: No: Sclera Icterus Cardiovascular: Yes: Regular Rate and Rhythm. No: Murmur Respiratory: Yes: Wheezes (bilateral expiratory wheezing) Gastrointestinal Inspection: Yes: Scars (RUQ scar) ...Auscultate: Yes: Normoactive Bowel Sounds ...Palpate: Yes: Soft. No: Hepatomegaly, Splenomegaly, Tenderness ...Percussion: No: Tympanitic ...Rectal Exam: Yes: Deferred (Refused by patient) Edema: No (No LE edema) Neurological: Yes: Alert, Confusion Labs: CBC, BMP 05/22/19 05:53 05/22/19 05:53 INR, PTT INR 1.08 (0.83-1.09) 05/20/19 19:55 Problem List - Problems (1) Anemia Assessment/Plan: with dark bowel movements described. Discussed this with patient. Explained that to look for source of bleeding, EGD could be undertaken followed by colonoscopy. We discussed potential risks of the procedures like but not limited to bleeding, perforation requiring surgery to repair, infection, sedation medication effects all of which could be potentially life threatening. She refused procedures. Arian great granddaughters came to visit after my evaluation and I explained to them her decision. Will need evaluation of tachypnea and wheezing noted on my PE by PMD PPI drip started Monitor H/H Recall If patient amenable and medically optimized for invasive testing, EGD / colonoscopy could be undertakn Code(s): D64.9 - ANEMIA, UNSPECIFIED Qualifiers: Anemia type: unspecified type Qualified Code(s): D64.9 - Anemia, unspecified
--- NOTE | 2019-05-22 20:55 | PN ---
Progress Note, Physician Chief Complaint: Patient appears comfortable without new complaints. Tele shows new afib with controlled VR in 80s BPM. History of Present Illness: 78 year-old woman with a PMHx of DM, HTN, HLD, arthritis, PAD, thyroid goiter presented to ED 05/20/19 with weakness. The patient was found severe weakness at home. Patient recently moved here from [place] 1m ago and has not had health care here due to insurance problems. She has been without her medications during this period of time. She feels tired recently. She noticed dark stools 3 day ago. She denies abdominal pain, chest pain, sob, headache, changes in vision, numbness/tingling, fever, chills, n/v/ d. No use of NSAIDs. Elevated CK with negative MB and elevated troponin 0.48 -> 0.58. Severe anemia ( 6.5/21.1), impaired renal function and severe hypokalemia (2.5) noted. ECG showed lateral and inferolateral ischemia in the setting of LVH. CXR revealed cardiomegaly. She received 2 units of PRBCs in ED. Echo 05/21/19 showed moderate pericardial effusion. Moderate LVH with normal LVEF. Thickened AV with moderate AI. New afib with controlled VR noted 05/22/19. - Current Medication List Current Medications: Active Medications Albuterol/Ipratropium (Duoneb -) 1 amp NEB Q6H PRN PRN Reason: SHORTNESS OF BREATH Last Admin: 05/22/19 19:55 Dose: 1 amp Amlodipine Besylate (Norvasc -) 2.5 mg PO DAILY [facility] Last Admin: 05/22/19 10:00 Dose: Not Given Ferrous Sulfate (Feosol -) 325 mg PO BIDWM [facility] Last Admin: 05/22/19 17:23 Dose: 325 mg Ceftriaxone Sodium 1 gm/ (Dextrose) 100 mls @ 200 mls/hr IVPB DAILY [facility]; Protocol Last Admin: 05/22/19 09:00 Dose: 200 mls/hr Pantoprazole Sodium 80 mg/ (Sodium Chloride) 100 mls @ 10 mls/hr IVPB Q10H [facility] Levothyroxine Sodium (Synthroid -) 25 mcg PO DAILY@0700 [facility] Last Admin: 05/22/19 06:33 Dose: 25 mcg - Objective Vital Signs: Vital Signs Temperature 97.6 F 05/22/19 18:26 Pulse Rate 55 L 05/22/19 18:26 Respiratory Rate 20 05/22/19 18:26 Blood Pressure 184/75 H 05/22/19 18:26 O2 Sat by Pulse Oximetry (%) 97 05/22/19 09:00 General: Well developed. Well nourished. No acute distress. Head: Normocephalic. Atraumatic, Eyes: PERRLA, EOMI. Sclerae anicteric. Conjunctivae clear. Neck: Supple. No JVD. No bruits. Heart: Normal S1, S2: Irregular rhythm and rate. No murmur. No gallop or rub. Lungs: Symmetrical air entry. Clear to auscultation. No crackle. No wheezing or rhonchi. Abdomen: Soft. Bowel sound positive. Non tender. No masses. Extremities: No edema. No clubbing or cyanosis. Labs: CBC, BMP 05/22/19 05:53 05/22/19 05:53 INR, PTT INR 1.08 (0.83-1.09) 05/20/19 19:55 Assessment/Plan 78 year-old woman with a PMHx of DM, HTN, HLD, arthritis, PAD, thyroid goiter presented to ED 05/20/19 with weakness. The patient was found severe weakness at home. Patient recently moved here from [place] 1m ago and has not had health care here due to insurance problems. She has been without her medications during this period of time. She feels tired recently. She noticed dark stools 3 day ago. She denies abdominal pain, chest pain, sob, headache, changes in vision, numbness/tingling, fever, chills, n/v/ d. No use of NSAIDs. Elevated CK with negative MB and elevated troponin 0.48 -> 0.58. Severe anemia ( 6.5/21.1), impaired renal function and severe hypokalemia (2.5) noted. ECG showed lateral and inferolateral ischemia in the setting of LVH. CXR revealed cardiomegaly. She received 2 units of PRBCs in ED. Echo 05/21/19 showed moderate pericardial effusion. Moderate LVH with normal LVEF. Thickened AV with moderate AI. New afib with controlled VR noted 05/22/19. 1) Mildly elevated troponin and CK with negative MB: Likely due to pericarditis/ myocarditis. Demand ischemia may also play a role. But it is not acute coronary syndrome. She has risk factors of CAD with ECG evidence of ischemia. -Conservative cardiac care for now. -Ischemic workup in future as out-patient if it is indicated. 2) Moderate pericardial effusion without clinical evidence of tamponade. BP is elevated with mild sinus bradycardia. -Repeat echo in 2 weeks. 3) New atrial fibrillation with controlled VR. The patient has risk of CVA with [id number] score of 5. Anticoagulation is indicated. However, AC cannot be started in the setting of GI bleeding. 4) HTN: BP is elevated. Increase amlodipine 5 mg daily. Avoid beta priti or non-dihydropyridine calcium channel blockers because of bradycardia and rate controlled afib.
[2019-05-22] MEDS: PANTOPRAZOLE SODIUM 80 MG in SODIUM CHLORIDE 100 ML IVPB SCH (21:20)
--- NOTE | 2019-05-22 23:50 | CONSULT ---
Consult Consult Specialty:: endocrine Referred by:: dr.majed soria Reason for Consultation:: hypothyrodism severe - History of Present Illness Chief Complaint: weakness,nearly passed out History of Present Illness: 78 y/o woman with a PMHx of DMT2,hypothyrodism, HTN, HLD, Arthritis, PAD?, Thyroid Goiter? medical history presenting to ED for weakness. recently relocated from [place],was found by family member who witness patient slumped over in nearly falling out,she has had dark stools,and poor appetite.she did not remember taking thyroid medication.she denies nausea ,vomiting,fever or cough - Past Medical History Cardio/Vascular: Yes: HTN, Hyperlipdemia, Other (PAD) Musculoskeletal: Yes: Osteoarthritis Endocrine: Yes: Diabetes Mellitus - Past Surgical History Past Surgical History: Yes: Cholecystectomy (open), - Alcohol/Substance Use Hx Alcohol Use: Yes History of Substance Use: reports: Cocaine (smoked crack) - Smoking History Smoking history: Never smoked Have you smoked in the past 12 months: No - Social History ADL: Family Assistance History of Recent Travel: Yes ([place]) Home Medications - Allergies Allergies/Adverse Reactions: Allergies Allergy/AdvReac Type Severity Reaction Status Date / Time No Known Allergies Allergy Verified 05/20/19 18:55 Family Disease History - Family Disease History Other Family History: No family history of cancer that she is aware of Review of Systems - Review of Systems Constitutional: reports: Lethargy, Weakness Eyes: reports: Blurred Vision HENT: reports: No Symptoms Neck: reports: No Symptoms Cardiovascular: reports: Shortness of Breath Respiratory: reports: Exercise Intolerance, SOB, SOB on Exertion Gastrointestinal: reports: Bloating, Nausea Genitourinary: reports: No Symptoms Breasts: reports: No Symptoms Reported Musculoskeletal: reports: Extremity Pain, Muscle Cramps, Muscle Weakness Neurological: reports: Confusion, Unsteady Gait, Weakness Endocrine: reports: No Symptoms Physical Exam Vital Signs: Vital Signs Temperature 97.9 F 05/22/19 20:25 Pulse Rate 67 05/22/19 20:25 Respiratory Rate 20 05/22/19 20:25 Blood Pressure 158/87 05/22/19 20:25 O2 Sat by Pulse Oximetry (%) 97 05/22/19 09:00 Constitutional: Yes: Calm Eyes: Yes: EOM Intact HENT: Yes: Normocephalic Neck: Yes: Thyromegaly Cardiovascular: Yes: Regular Rate and Rhythm Respiratory: Yes: CTA Bilaterally Gastrointestinal: Yes: Normal Bowel Sounds ...Rectal Exam: Yes: Deferred Renal/: Yes: WNL Musculoskeletal: Yes: Muscle Pain, Muscle Weakness Edema: No Neurological: Yes: Alert, Oriented Labs: CBC, BMP 05/22/19 05:53 05/22/19 05:53 Problem List - Problems (1) GI bleed Code(s): K92.2 - GASTROINTESTINAL HEMORRHAGE, UNSPECIFIED Qualifiers: GI bleed type/associated pathology: melena Qualified Code(s): K92.1 - Melena (2) Hypokalemia Code(s): E87.6 - HYPOKALEMIA (3) Hypothyroid Code(s): E03.9 - HYPOTHYROIDISM, UNSPECIFIED (4) UTI (urinary tract infection) Code(s): N39.0 - URINARY TRACT INFECTION, SITE NOT SPECIFIED Qualifiers: Urinary tract infection type: site unspecified Hematuria presence: without hematuria Qualified Code(s): N39.0 - Urinary tract infection, site not specified Assessment/Plan Current Active Problems DMT2,NEUROPATHY HAILE (acute kidney injury) (Acute) Anemia (Acute) GI bleed (Acute) Hypokalemia (Acute) Hypothyroid (Acute) UTI (urinary tract infection) (Acute) Abnormal Lab Results 05/22/19 05/22/19 05:53 05:53 Hgb 10.1 L Hct 30.6 L D RDW 16.8 H Eosinophils % 5.7 H D Creatinine 1.6 H AST 50 H Alkaline Phosphatase 124 H Total Protein 8.8 H Laboratory Results - last 24 hr 05/22/19 05/22/19 05:53 05:53 WBC 5.6 RBC 3.78 Hgb 10.1 L Hct 30.6 L D MCV 80.9 MCH 26.6 MCHC 32.9 RDW 16.8 H Plt Count 178 D MPV 9.1 Absolute Neuts (auto) 3.8 Neutrophils % 68.1 Lymphocytes % 18.6 Monocytes % 6.8 Eosinophils % 5.7 H D Basophils % 0.8 Nucleated RBC % 0 Sodium 139 Potassium 3.5 Chloride 102 Carbon Dioxide 29 Anion Gap 9 BUN 10.5 Creatinine 1.6 H Est GFR (CKD-EPI)AfAm 34.91 Est GFR (CKD-EPI)NonAf 30.12 Random Glucose 104 Calcium 8.9 Total Bilirubin 0.6 AST 50 H ALT 21 Alkaline Phosphatase 124 H Total Protein 8.8 H Albumin 4.1 PLAN; SYNTHROID 50MCG DAILY BGM TID ACMEAL DIET AND NUTRITION
[2019-05-23] MEDS: PANTOPRAZOLE SODIUM 80 MG in SODIUM CHLORIDE 100 ML IVPB SCH ×2 (05:35→14:57)
[2019-05-23] MEDS: INSULIN SLIDING SCALE (NOVOLOG) 1 VIAL SQ SCH ×3 (06:15→16:47)
[2019-05-23] MEDS: LEVOTHYROXINE NA 50 MCG TABLET (FP) PO SCH (06:50)
[2019-05-23 08:27] LABS: ALBUMIN 3.6 g/dl (3.4-5.0); BILIRUBIN,TOTAL 0.4 mg/dL (0.2-1); CALCIUM 8.7 mg/dL (8.5-10.1); CREATININE 1.5 mg/dL (0.55-1.3); TOT PROT 7.9 g/dl (6.4-8.2)
[2019-05-23 09:09] LABS: BASO % 0.6 % (0-2.0); EOS % 4.9 % (0-4.5); HEMATOCRIT 29.7 % (32.4-45.2); HEMOGLOBIN 9.7 GM/dL (10.7-15.3); LYMPH % 16.7 % (8-40); MCH 26.6 pg (25.7-33.7); MCHC 32.8 g/dl (32.0-36.0); MEAN PLT VOLUME 8.9 fl (7.5-11.1); MONO % 6.8 % (3.8-10.2); PLATELET COUNT 170 K/MM3 (134-434); RBC 3.67 M/mm3 (3.60-5.2); RDW 17.1 % (11.6-15.6); WHITE BLOOD COUNT 5.4 K/mm3 (4.0-10.0)
[2019-05-23] MEDS ORDERED: DEXTROSE 5%-WATER 100 ML IVPB ONE (10:15)
[2019-05-23] MEDS ORDERED: cefTRIAXone SODIUM 1 GM VIAL ONE (10:15)
[2019-05-23] MEDS: CEFTRIAXONE 1 GM in DEXTROSE 5%-WATER 100 ML IVPB SCH (10:20)
[2019-05-23] MEDS: FERROUS SO4 325 MG TABLET (FP) PO SCH ×2 (10:20→16:59)
[2019-05-23] MEDS: amLODIPine BESYLATE 2.5 MG TABLET (FP) PO SCH (10:20)
[2019-05-23] MEDS ORDERED: POTASSIUM CHLORIDE TABS 20 MEQ TABLET.ER (FP) PO ONE (10:22)
[2019-05-23] MEDS: KCL 10 MEQ IVPB 10 MEQ/100 ML INFUS.BAG IVPB SCH ×2 (10:56→14:58)
--- NOTE | 2019-05-23 12:25 | PN ---
Progress Note, Physician - Current Medication List Current Medications: Active Medications Albuterol/Ipratropium (Duoneb -) 1 amp NEB Q6H PRN PRN Reason: SHORTNESS OF BREATH Last Admin: 05/22/19 19:55 Dose: 1 amp Amlodipine Besylate (Norvasc -) 2.5 mg PO DAILY [facility] Last Admin: 05/23/19 10:20 Dose: 2.5 mg Ferrous Sulfate (Feosol -) 325 mg PO BIDWM [facility] Last Admin: 05/23/19 10:20 Dose: 325 mg Ceftriaxone Sodium 1 gm/ (Dextrose) 100 mls @ 200 mls/hr IVPB DAILY [facility]; Protocol Last Admin: 05/23/19 10:20 Dose: 200 mls/hr Pantoprazole Sodium 80 mg/ (Sodium Chloride) 100 mls @ 10 mls/hr IVPB Q10H [facility] Last Admin: 05/23/19 05:35 Dose: 10 mls/hr Potassium Chloride (Potassium Chloride 10 Meq Premix Ivpb -) 10 meq in 100 mls @ 100 mls/hr IVPB Q60M [facility] Stop: 05/23/19 12:29 Last Admin: 05/23/19 10:56 Dose: 100 mls/hr Insulin Aspart (Novolog Vial Sliding Scale -) 1 vial SQ TIDAC [facility]; Protocol Last Admin: 05/23/19 11:31 Dose: Not Given Levothyroxine Sodium (Synthroid -) 50 mcg PO DAILY@0700 [facility] Last Admin: 05/23/19 06:50 Dose: 50 mcg - Objective Vital Signs: Vital Signs Temperature 97.7 F 05/23/19 06:00 Pulse Rate 68 05/23/19 06:00 Respiratory Rate 20 05/23/19 06:00 Blood Pressure 164/83 05/23/19 06:00 O2 Sat by Pulse Oximetry (%) 99 05/22/19 21:00 Cardiovascular: Yes: S1, S2 Respiratory: Yes: Regular, CTA Bilaterally Gastrointestinal: Yes: Normal Bowel Sounds, Soft. No: Tenderness Labs: CBC, BMP 05/23/19 05:50 05/23/19 05:50 INR, PTT INR 1.08 (0.83-1.09) 05/20/19 19:55 Assessment/Plan Problems (1) Anemia Assessment/Plan: -Guaiac positive -GI consult -PRBC 2 units -monitor H/H closely -NAUN -Started on Ferrous sulfate Code(s): D64.9 - ANEMIA, UNSPECIFIED Qualifiers: Anemia type: unspecified type Qualified Code(s): D64.9 - Anemia, unspecified (2) GI bleed Assessment/Plan: -Guaiac positive -GI consult -PRBC 2 units -monitor H/H closely Code(s): K92.2 - GASTROINTESTINAL HEMORRHAGE, UNSPECIFIED Qualifiers: GI bleed type/associated pathology: melena Qualified Code(s): K92.1 - Melena (3) UTI (urinary tract infection) Assessment/Plan: -UA+nitrites -UC pending Microbiology 05/20/19 20:00 Urine - Urine - Catheterized Urine Culture - Preliminary Lactose Fermenting Neg Bacilli -Started on Rocephin -afebrile -no leukocytosis Code(s): N39.0 - URINARY TRACT INFECTION, SITE NOT SPECIFIED Qualifiers: Urinary tract infection type: site unspecified Hematuria presence: without hematuria Qualified Code(s): N39.0 - Urinary tract infection, site not specified (4) HAILE (acute kidney injury) Assessment/Plan: -Nephrology consult -monitor trend -2/2 to UTI? Code(s): N17.9 - ACUTE KIDNEY FAILURE, UNSPECIFIED (5) Hypokalemia Assessment/Plan: -KCL 10 meq x 3 -KCL 40 meq po once -monitor trend and replace Code(s): E87.6 - HYPOKALEMIA (6) Hypothyroid Assessment/Plan: -Start levothyroxine 25 mcg po daily -repeat thyroid profile in 6-8 weeks Code(s): E03.9 - HYPOTHYROIDISM, UNSPECIFIED
--- NOTE | 2019-05-23 14:39 | PN ---
Progress Note, Physician History of Present Illness: Pt seen and examined at bedside. She is awake and appears comfortable. She denies shortness of breath. - Current Medication List Current Medications: Active Medications Albuterol/Ipratropium (Duoneb -) 1 amp NEB Q6H PRN PRN Reason: SHORTNESS OF BREATH Last Admin: 05/22/19 19:55 Dose: 1 amp Amlodipine Besylate (Norvasc -) 2.5 mg PO DAILY [facility] Last Admin: 05/23/19 10:20 Dose: 2.5 mg Ferrous Sulfate (Feosol -) 325 mg PO BIDWM [facility] Last Admin: 05/23/19 10:20 Dose: 325 mg Ceftriaxone Sodium 1 gm/ (Dextrose) 100 mls @ 200 mls/hr IVPB DAILY [facility]; Protocol Last Admin: 05/23/19 10:20 Dose: 200 mls/hr Pantoprazole Sodium 80 mg/ (Sodium Chloride) 100 mls @ 10 mls/hr IVPB Q10H [facility] Last Admin: 05/23/19 05:35 Dose: 10 mls/hr Insulin Aspart (Novolog Vial Sliding Scale -) 1 vial SQ TIDAC [facility]; Protocol Last Admin: 05/23/19 11:31 Dose: Not Given Levothyroxine Sodium (Synthroid -) 50 mcg PO DAILY@0700 [facility] Last Admin: 05/23/19 06:50 Dose: 50 mcg - Objective Vital Signs: Vital Signs Temperature 97.5 F L 05/23/19 10:00 Pulse Rate 59 L 05/23/19 10:00 Respiratory Rate 20 05/23/19 10:00 Blood Pressure 189/91 H 05/23/19 10:00 O2 Sat by Pulse Oximetry (%) 97 05/23/19 09:00 Constitutional: Yes: Calm Eyes: Yes: Conjunctiva Clear HENT: Yes: Atraumatic Neck: Yes: Supple Cardiovascular: Yes: S1, S2 Respiratory: Yes: CTA Bilaterally Gastrointestinal: Yes: Normal Bowel Sounds, Soft Genitourinary: Yes: WNL Musculoskeletal: Yes: WNL Edema: No Neurological: Yes: Oriented Psychiatric: Yes: Oriented Labs: CBC, BMP 05/23/19 05:50 05/23/19 05:50 INR, PTT INR 1.08 (0.83-1.09) 05/20/19 19:55 Problem List - Problems (1) HAILE (acute kidney injury) Code(s): N17.9 - ACUTE KIDNEY FAILURE, UNSPECIFIED (2) Hypokalemia Code(s): E87.6 - HYPOKALEMIA (3) Hypothyroid Code(s): E03.9 - HYPOTHYROIDISM, UNSPECIFIED (4) Anemia Code(s): D64.9 - ANEMIA, UNSPECIFIED Qualifiers: Anemia type: unspecified type Qualified Code(s): D64.9 - Anemia, unspecified Assessment/Plan Current Medications Generic Name Dose Route Start Last Admin Trade Name Freq PRN Reason Stop Dose Admin Albuterol/Ipratropium 1 amp 05/22/19 00:10 05/22/19 19:55 Duoneb - NEB 1 amp Q6H PRN Administration SHORTNESS OF BREATH Amlodipine Besylate 2.5 mg 05/21/19 19:30 05/23/19 10:20 Norvasc - PO 2.5 mg DAILY [facility] Administration Ferrous Sulfate 325 mg 05/21/19 17:30 05/23/19 10:20 Feosol - PO 325 mg BIDWM [facility] Administration Ceftriaxone Sodium 1 gm/ 100 mls @ 200 mls/hr 05/21/19 10:00 05/23/19 10:20 Dextrose IVPB 200 mls/hr DAILY [facility] Administration Protocol Pantoprazole Sodium 80 mg/ 100 mls @ 10 mls/hr 05/22/19 18:30 05/23/19 05:35 Sodium Chloride IVPB 10 mls/hr Q10H [facility] Administration 8 MG/HR Insulin Aspart 1 vial 05/23/19 07:00 05/23/19 11:31 Novolog Vial Sliding Scale - SQ Not Given TIDAC [facility] Protocol Levothyroxine Sodium 50 mcg 05/23/19 07:00 05/23/19 06:50 Synthroid - PO 50 mcg DAILY@0700 [facility] Administration Impression 1. HAILE 2. hypokalemia 3. uti 4. near syncope 5. hypothyroid with elevated tsh 6. DM 7. HTN 8. arthritis 9. anemia Plan - replace potassium - check mag - renal function is improving - increase amlodipine to 5 mg and monitor bp - renal ultrasound reviewed - anemia workup per primary team
[2019-05-23] MEDS: amLODIPine BESYLATE 5 MG TABLET (FP) PO SCH (14:59)
--- NOTE | 2019-05-23 15:18 | PN.GI ---
GI Progress Note Subjective: No acute events No overt bleeding Urinary incontinence - Objective Vital Signs: Vital Signs Temperature 97.5 F L 05/23/19 10:00 Pulse Rate 59 L 05/23/19 10:00 Respiratory Rate 20 05/23/19 10:00 Blood Pressure 189/91 H 05/23/19 10:00 O2 Sat by Pulse Oximetry (%) 97 05/23/19 09:00 Constitutional: Calm Eyes: No: Sclera Icterus Cardiovascular: Yes: Regular Rate and Rhythm Respiratory: Yes: Wheezes Gastrointestinal Inspection: No: Distention ...Auscultate: Yes: Normoactive Bowel Sounds ...Palpate: Yes: Soft. No: Hepatomegaly, Splenomegaly, Tenderness Edema: No Labs: CBC, BMP 05/23/19 05:50 05/23/19 05:50 INR, PTT INR 1.08 (0.83-1.09) 05/20/19 19:55 Problem List - Problems (1) Anemia Assessment/Plan: No overt bleeding Monitor H/H ? goals of care. Patient refused procedures on initial evaluation but is also confused PPI drip for 72 hours total followed by 40mg daily Please recall GI if patient medically cleared for and amenable to endoscopic evaluation. Code(s): D64.9 - ANEMIA, UNSPECIFIED Qualifiers: Anemia type: unspecified type Qualified Code(s): D64.9 - Anemia, unspecified
--- NOTE | 2019-05-23 17:57 | PN ---
Progress Note (short form) - Note Progress Note: Consult dictated 78 year old presents with Hb-6.5 and change in mentation. Iron studies with Fe++-22, TIBC--510, iron saturation - 4%% Ferritin - 5 Hematest positive stool Elevated creatinine also contributing to anemia. Low TSH suggestive of thyroid dysfunction. Last Vital Signs Temp Pulse Resp BP Pulse Ox 98.3 F 52 L 20 155/61 97 05/23/19 14:00 05/23/19 14:00 05/23/19 10:00 05/23/19 14:00 05/23/19 09:00 HEENT: ROSARIO, EOM Intact Oropharynx: No thrush, No mucositis,edentulous Neck: Supple Nodes: Without adenopathy Breasts: Without masses, inverted left nipple Cor: RSR, No murmurs, No gallops Lungs: decreased breath sounds Abd: Soft, Normal bowel sounds, No organomegaly, distended, RUQ scar Ext:No significant edema Skin: No rashes, Integument intact CBC, BMP 05/23/19 05:50 05/23/19 05:50 Current Medications Generic Name Dose Route Start Last Admin Trade Name Freq PRN Reason Stop Dose Admin Albuterol/Ipratropium 1 amp 05/22/19 00:10 05/22/19 19:55 Duoneb - NEB 1 amp Q6H PRN Administration SHORTNESS OF BREATH Amlodipine Besylate 5 mg 05/23/19 14:45 05/23/19 14:59 Norvasc - PO 5 mg DAILY [facility] Administration Ferrous Sulfate 325 mg 05/21/19 17:30 05/23/19 16:59 Feosol - PO 325 mg BIDWM [facility] Administration Ceftriaxone Sodium 1 gm/ 100 mls @ 200 mls/hr 05/21/19 10:00 05/23/19 10:20 Dextrose IVPB 200 mls/hr DAILY [facility] Administration Protocol Pantoprazole Sodium 80 mg/ 100 mls @ 10 mls/hr 05/22/19 18:30 05/23/19 14:57 Sodium Chloride IVPB 10 mls/hr Q10H [facility] Administration 8 MG/HR Insulin Aspart 1 vial 05/23/19 07:00 05/23/19 16:47 Novolog Vial Sliding Scale - SQ Not Given TIDAC [facility] Protocol Levothyroxine Sodium 50 mcg 05/23/19 07:00 05/23/19 06:50 Synthroid - PO 50 mcg DAILY@0700 [facility] Administration Impression: Iron deficiency - s/p iron infusions E.Coli-UTI Thyroid dysfunction Plan: Ideally GI asessment if patiient and family angle accept
--- NOTE | 2019-05-23 18:08 | PN ---
Progress Note, Physician Chief Complaint: Patient appears comfortable without new complaints. Tele shows sinus at 65 BPM, occasional mild sinus bradycardia, no pauses. History of Present Illness: 78 year-old woman with a PMHx of DM, HTN, HLD, arthritis, PAD, thyroid goiter presented to ED 05/20/19 with weakness. The patient was found severe weakness at home. Patient recently moved here from [place] 1m ago and has not had health care here due to insurance problems. She has been without her medications during this period of time. She feels tired recently. She noticed dark stools 3 day ago. She denies abdominal pain, chest pain, sob, headache, changes in vision, numbness/tingling, fever, chills, n/v/ d. No use of NSAIDs. Elevated CK with negative MB and elevated troponin 0.48 -> 0.58. Severe anemia ( 6.5/21.1), impaired renal function and severe hypokalemia (2.5) noted. ECG showed lateral and inferolateral ischemia in the setting of LVH. CXR revealed cardiomegaly. She received 2 units of PRBCs in ED. Echo 05/21/19 showed moderate pericardial effusion. Moderate LVH with normal LVEF. Thickened AV with moderate AI. New afib with controlled VR noted 05/22/19, back to sinus 05/23/19. - Current Medication List Current Medications: Active Medications Albuterol/Ipratropium (Duoneb -) 1 amp NEB Q6H PRN PRN Reason: SHORTNESS OF BREATH Last Admin: 05/22/19 19:55 Dose: 1 amp Amlodipine Besylate (Norvasc -) 5 mg PO DAILY [facility] Last Admin: 05/23/19 14:59 Dose: 5 mg Ferrous Sulfate (Feosol -) 325 mg PO BIDWM [facility] Last Admin: 05/23/19 16:59 Dose: 325 mg Ceftriaxone Sodium 1 gm/ (Dextrose) 100 mls @ 200 mls/hr IVPB DAILY [facility]; Protocol Last Admin: 05/23/19 10:20 Dose: 200 mls/hr Pantoprazole Sodium 80 mg/ (Sodium Chloride) 100 mls @ 10 mls/hr IVPB Q10H [facility] Last Admin: 05/23/19 14:57 Dose: 10 mls/hr Insulin Aspart (Novolog Vial Sliding Scale -) 1 vial SQ TIDAC [facility]; Protocol Last Admin: 05/23/19 16:47 Dose: Not Given Levothyroxine Sodium (Synthroid -) 50 mcg PO DAILY@0700 [facility] Last Admin: 05/23/19 06:50 Dose: 50 mcg - Objective Vital Signs: Vital Signs Temperature 98.3 F 05/23/19 14:00 Pulse Rate 52 L 05/23/19 14:00 Respiratory Rate 20 05/23/19 10:00 Blood Pressure 155/61 05/23/19 14:00 O2 Sat by Pulse Oximetry (%) 97 05/23/19 09:00 General: Well developed. Well nourished. No acute distress. Head: Normocephalic. Atraumatic, Eyes: PERRLA, EOMI. Sclerae anicteric. Pallor. Neck: Supple. No JVD. No bruits. Heart: Distant S1, S2: Regular rhythm and rate. No murmur. No gallop or rub. Lungs: Symmetrical air entry. Clear to auscultation. No crackles. No wheezing or rhonchi. Abdomen: Soft. Bowel sound positive. Non tender. No masses. Extremities: No edema. No clubbing or cyanosis. Labs: CBC, BMP 05/23/19 05:50 05/23/19 05:50 INR, PTT INR 1.08 (0.83-1.09) 05/20/19 19:55 Assessment/Plan 78 year-old woman with a PMHx of DM, HTN, HLD, arthritis, PAD, thyroid goiter presented to ED 05/20/19 with weakness. The patient was found severe weakness at home. Patient recently moved here from [place] 1m ago and has not had health care here due to insurance problems. She has been without her medications during this period of time. She feels tired recently. She noticed dark stools 3 day ago. She denies abdominal pain, chest pain, sob, headache, changes in vision, numbness/tingling, fever, chills, n/v/ d. No use of NSAIDs. Elevated CK with negative MB and elevated troponin 0.48 -> 0.58. Severe anemia ( 6.5/21.1), impaired renal function and severe hypokalemia (2.5) noted. ECG showed lateral and inferolateral ischemia in the setting of LVH. CXR revealed cardiomegaly. She received 2 units of PRBCs in ED. Echo 05/21/19 showed moderate pericardial effusion. Moderate LVH with normal LVEF. Thickened AV with moderate AI. New afib with controlled VR noted 05/22/19, back to sinus 05/23/19. 1) Mildly elevated troponin and CK with negative MB: Likely due to pericarditis/ myocarditis. Demand ischemia may also play a role. But it is not acute coronary syndrome. She has risk factors of CAD with ECG evidence of ischemia. -Conservative cardiac care for now. -Ischemic workup in future as out-patient if it is indicated. 2) Moderate pericardial effusion without clinical evidence of tamponade. BP is elevated with mild sinus bradycardia. -Repeat echo in 2 weeks. 3) New atrial fibrillation with controlled VR. The patient has risk of CVA with [id number] score of 5. Anticoagulation is indicated. However, AC cannot be started in the setting of GI bleeding. 4) HTN: BP is elevated. Amlodipine increased to 5 mg daily. Avoid beta priti or non-dihydropyridine calcium channel blockers because of bradycardia and rate controlled afib. The patient needs close out-pt cardiac followup to monitor rhythm and pericardial effusion. Please do not hesitate to call us for reconsult at any time if any further questions or additional issue arises regarding this patient.
[2019-05-24] MEDS: LEVOTHYROXINE NA 50 MCG TABLET (FP) PO SCH (06:47)
[2019-05-24] MEDS: PANTOPRAZOLE SODIUM 80 MG in SODIUM CHLORIDE 100 ML IVPB SCH ×2 (06:47→11:00)
[2019-05-24] MEDS: INSULIN SLIDING SCALE (NOVOLOG) 1 VIAL SQ SCH ×3 (06:49→17:10)
[2019-05-24 07:20] LABS: ALBUMIN 3.5 g/dl (3.4-5.0); BILIRUBIN,TOTAL 0.3 mg/dL (0.2-1); BLOOD UREA NITROGEN 11.8 mg/dL (7-18); CALCIUM 8.5 mg/dL (8.5-10.1); CREATININE 1.5 mg/dL (0.55-1.3); MAGNESIUM 2.1 mg/dL (1.8-2.4); POTASSIUM 3.8 mmol/L (3.5-5.1); TOT PROT 7.6 g/dl (6.4-8.2)
[2019-05-24 07:27] LABS: BASO % 0.6 % (0-2.0); EOS % 4.9 % (0-4.5); HEMATOCRIT 28.8 % (32.4-45.2); HEMOGLOBIN 9.5 GM/dL (10.7-15.3); LYMPH % 20.3 % (8-40); MCH 26.7 pg (25.7-33.7); MCHC 32.9 g/dl (32.0-36.0); MEAN CELL VOLUME 81.4 fl (80-96); MEAN PLT VOLUME 9.1 fl (7.5-11.1); MONO % 6.8 % (3.8-10.2); NEUT % 67.4 % (42.8-82.8); PLATELET COUNT 161 K/MM3 (134-434); RBC 3.53 M/mm3 (3.60-5.2); RDW 17.4 % (11.6-15.6); WHITE BLOOD COUNT 4.5 K/mm3 (4.0-10.0)
--- NOTE | 2019-05-24 10:01 | PN ---
Progress Note, Physician - Current Medication List Current Medications: Active Medications Albuterol/Ipratropium (Duoneb -) 1 amp NEB Q6H PRN PRN Reason: SHORTNESS OF BREATH Last Admin: 05/22/19 19:55 Dose: 1 amp Amlodipine Besylate (Norvasc -) 5 mg PO DAILY [facility] Last Admin: 05/23/19 14:59 Dose: 5 mg Ferrous Sulfate (Feosol -) 325 mg PO BIDWM [facility] Last Admin: 05/23/19 16:59 Dose: 325 mg Ceftriaxone Sodium 1 gm/ (Dextrose) 100 mls @ 200 mls/hr IVPB DAILY [facility]; Protocol Last Admin: 05/23/19 10:20 Dose: 200 mls/hr Pantoprazole Sodium 80 mg/ (Sodium Chloride) 100 mls @ 10 mls/hr IVPB Q10H [facility] Last Admin: 05/24/19 06:47 Dose: 10 mls/hr Insulin Aspart (Novolog Vial Sliding Scale -) 1 vial SQ TIDAC [facility]; Protocol Last Admin: 05/24/19 06:49 Dose: Not Given Levothyroxine Sodium (Synthroid -) 50 mcg PO DAILY@0700 [facility] Last Admin: 05/24/19 06:47 Dose: 50 mcg - Objective Vital Signs: Vital Signs Temperature 98.3 F 05/24/19 06:00 Pulse Rate 58 L 05/24/19 06:00 Respiratory Rate 20 05/24/19 09:00 Blood Pressure 138/57 L 05/24/19 06:00 O2 Sat by Pulse Oximetry (%) 100 05/24/19 09:00 Cardiovascular: Yes: S1, S2 Respiratory: Yes: Regular, CTA Bilaterally Gastrointestinal: Yes: Normal Bowel Sounds, Soft Labs: CBC, BMP 05/24/19 05:20 05/24/19 05:20 INR, PTT INR 1.08 (0.83-1.09) 05/20/19 19:55 Assessment/Plan Problems (1) Anemia Assessment/Plan: -Guaiac positive -GI consult -PRBC 2 units -monitor H/H closely -NAUN -Started on Ferrous sulfate Code(s): D64.9 - ANEMIA, UNSPECIFIED Qualifiers: Anemia type: unspecified type Qualified Code(s): D64.9 - Anemia, unspecified (2) GI bleed Assessment/Plan: -Guaiac positive -GI consult -PRBC 2 units -monitor H/H closely Code(s): K92.2 - GASTROINTESTINAL HEMORRHAGE, UNSPECIFIED Qualifiers: GI bleed type/associated pathology: melena Qualified Code(s): K92.1 - Melena (3) UTI (urinary tract infection) Assessment/Plan: -UA+nitrites -UC pending Microbiology 05/20/19 20:00 Urine - Urine - Catheterized Urine Culture - Preliminary Lactose Fermenting Neg Bacilli -Started on Rocephin -afebrile -no leukocytosis Code(s): N39.0 - URINARY TRACT INFECTION, SITE NOT SPECIFIED Qualifiers: Urinary tract infection type: site unspecified Hematuria presence: without hematuria Qualified Code(s): N39.0 - Urinary tract infection, site not specified (4) HAILE (acute kidney injury) Assessment/Plan: -Nephrology consult -monitor trend -2/2 to UTI? Code(s): N17.9 - ACUTE KIDNEY FAILURE, UNSPECIFIED (5) Hypokalemia Assessment/Plan: -monitor trend and replace Code(s): E87.6 - HYPOKALEMIA (6) Hypothyroid Assessment/Plan: -Start levothyroxine 25 mcg po daily -repeat thyroid profile in 6-8 weeks Code(s): E03.9 - HYPOTHYROIDISM, UNSPECIFIED
[2019-05-24] MEDS ORDERED: PT OWN MED DRAWER 7, Y5N ONE (10:57)
[2019-05-24] MEDS ORDERED: cefTRIAXone SODIUM 1 GM VIAL ONE (10:58)
[2019-05-24] MEDS ORDERED: DEXTROSE 5%-WATER 100 ML IVPB ONE (10:58)
[2019-05-24] MEDS: CEFTRIAXONE 1 GM in DEXTROSE 5%-WATER 100 ML IVPB SCH (11:00)
[2019-05-24] MEDS: amLODIPine BESYLATE 5 MG TABLET (FP) PO SCH (11:00)
[2019-05-24] MEDS: FERROUS SO4 325 MG TABLET (FP) PO SCH ×2 (11:00→17:25)
--- NOTE | 2019-05-24 13:26 | PN ---
Progress Note, Physician History of Present Illness: Pt seen and examined at bedside. She is more awake and alert. She denies shortness of breath. - Current Medication List Current Medications: Active Medications Albuterol/Ipratropium (Duoneb -) 1 amp NEB Q6H PRN PRN Reason: SHORTNESS OF BREATH Last Admin: 05/22/19 19:55 Dose: 1 amp Amlodipine Besylate (Norvasc -) 5 mg PO DAILY [facility] Last Admin: 05/24/19 11:00 Dose: 5 mg Ferrous Sulfate (Feosol -) 325 mg PO BIDWM [facility] Last Admin: 05/24/19 11:00 Dose: 325 mg Ceftriaxone Sodium 1 gm/ (Dextrose) 100 mls @ 200 mls/hr IVPB DAILY [facility]; Protocol Last Admin: 05/24/19 11:00 Dose: 200 mls/hr Pantoprazole Sodium 80 mg/ (Sodium Chloride) 100 mls @ 10 mls/hr IVPB Q10H [facility] Last Admin: 05/24/19 11:00 Dose: 10 mls/hr Insulin Aspart (Novolog Vial Sliding Scale -) 1 vial SQ TIDAC [facility]; Protocol Last Admin: 05/24/19 11:30 Dose: Not Given Levothyroxine Sodium (Synthroid -) 50 mcg PO DAILY@0700 [facility] Last Admin: 05/24/19 06:47 Dose: 50 mcg - Objective Vital Signs: Vital Signs Temperature 98.3 F 05/24/19 06:00 Pulse Rate 58 L 05/24/19 06:00 Respiratory Rate 20 05/24/19 09:00 Blood Pressure 138/57 L 05/24/19 06:00 O2 Sat by Pulse Oximetry (%) 100 05/24/19 09:00 Constitutional: Yes: Calm Eyes: Yes: Conjunctiva Clear HENT: Yes: Atraumatic Neck: Yes: Supple Cardiovascular: Yes: S1, S2 Respiratory: Yes: CTA Bilaterally Gastrointestinal: Yes: WNL Genitourinary: Yes: WNL Musculoskeletal: Yes: WNL Edema: Yes Edema: LLE: Trace, RLE: Trace Neurological: Yes: Oriented Labs: CBC, BMP 05/24/19 05:20 05/24/19 05:20 INR, PTT INR 1.08 (0.83-1.09) 05/20/19 19:55 Problem List - Problems (1) HAILE (acute kidney injury) Code(s): N17.9 - ACUTE KIDNEY FAILURE, UNSPECIFIED (2) Hypokalemia Code(s): E87.6 - HYPOKALEMIA (3) Hypothyroid Code(s): E03.9 - HYPOTHYROIDISM, UNSPECIFIED (4) Anemia Code(s): D64.9 - ANEMIA, UNSPECIFIED Qualifiers: Anemia type: unspecified type Qualified Code(s): D64.9 - Anemia, unspecified Assessment/Plan Current Medications Generic Name Dose Route Start Last Admin Trade Name Freq PRN Reason Stop Dose Admin Albuterol/Ipratropium 1 amp 05/22/19 00:10 05/22/19 19:55 Duoneb - NEB 1 amp Q6H PRN Administration SHORTNESS OF BREATH Amlodipine Besylate 5 mg 05/23/19 14:45 05/24/19 11:00 Norvasc - PO 5 mg DAILY [facility] Administration Ferrous Sulfate 325 mg 05/21/19 17:30 05/24/19 11:00 Feosol - PO 325 mg BIDWM [facility] Administration Ceftriaxone Sodium 1 gm/ 100 mls @ 200 mls/hr 05/21/19 10:00 05/24/19 11:00 Dextrose IVPB 200 mls/hr DAILY [facility] Administration Protocol Pantoprazole Sodium 80 mg/ 100 mls @ 10 mls/hr 05/22/19 18:30 05/24/19 11:00 Sodium Chloride IVPB 10 mls/hr Q10H [facility] Administration 8 MG/HR Insulin Aspart 1 vial 05/23/19 07:00 05/24/19 11:30 Novolog Vial Sliding Scale - SQ Not Given TIDAC [facility] Protocol Levothyroxine Sodium 50 mcg 05/23/19 07:00 05/24/19 06:47 Synthroid - PO 50 mcg DAILY@0700 [facility] Administration Impression 1. HAILE 2. hypokalemia 3. uti 4. near syncope 5. hypothyroid with elevated tsh 6. DM 7. HTN 8. arthritis 9. anemia Plan - lytes are stable - bp is improved - cont amlodipine at 5 mg - monitor blood pressure - repeat ua - renal function stabilizing - anemia workup per primary team
[2019-05-24] MEDS: PANTOPRAZOLE 40 MG TABLET (FP) PO SCH (22:41)
[2019-05-25] MEDS: INSULIN SLIDING SCALE (NOVOLOG) 1 VIAL SQ SCH ×3 (06:30→17:06)
[2019-05-25] MEDS: LEVOTHYROXINE NA 50 MCG TABLET (FP) PO SCH (06:30)
[2019-05-25 06:47] LABS: BASO % 0.7 % (0-2.0); EOS % 5.9 % (0-4.5); HEMATOCRIT 30.2 % (32.4-45.2); HEMOGLOBIN 9.9 GM/dL (10.7-15.3); LYMPH % 17.8 % (8-40); MCH 26.8 pg (25.7-33.7); MCHC 32.9 g/dl (32.0-36.0); MEAN CELL VOLUME 81.4 fl (80-96); MONO % 8.3 % (3.8-10.2); NEUT % 67.3 % (42.8-82.8); PLATELET COUNT 156 K/MM3 (134-434); RDW 17.1 % (11.6-15.6); WHITE BLOOD COUNT 4.4 K/mm3 (4.0-10.0)
[2019-05-25 07:10] LABS: BLOOD UREA NITROGEN 14.5 mg/dL (7-18); CALCIUM 8.8 mg/dL (8.5-10.1); CREATININE 1.5 mg/dL (0.55-1.3); POTASSIUM 3.5 mmol/L (3.5-5.1)
[2019-05-25] MEDS ORDERED: DEXTROSE 5%-WATER 100 ML IVPB ONE (10:00)
[2019-05-25] MEDS ORDERED: cefTRIAXone SODIUM 1 GM VIAL ONE (10:00)
[2019-05-25] MEDS: CEFTRIAXONE 1 GM in DEXTROSE 5%-WATER 100 ML IVPB SCH (10:17)
[2019-05-25] MEDS: FERROUS SO4 325 MG TABLET (FP) PO SCH ×2 (10:18→17:36)
[2019-05-25] MEDS: PANTOPRAZOLE 40 MG TABLET (FP) PO SCH ×2 (10:18→22:15)
[2019-05-25] MEDS: amLODIPine BESYLATE 5 MG TABLET (FP) PO SCH (10:18)
--- NOTE | 2019-05-25 10:45 | PN.GI ---
GI Progress Note Subjective: patient seen yesterdy, toleraing diet, no melena, no retal bleeding and no abdominal pain - Objective Vital Signs: Vital Signs Temperature 98.2 F 05/25/19 02:00 Pulse Rate 47 L 05/25/19 07:00 Respiratory Rate 20 05/25/19 07:00 Blood Pressure 156/74 05/25/19 07:00 O2 Sat by Pulse Oximetry (%) 96 05/24/19 21:00 Constitutional: Well Nourished, No Distress Eyes: Yes: Conjunctiva Clear HENT: Yes: Atraumatic Neck: Yes: Supple Cardiovascular: Yes: Regular Rate and Rhythm Respiratory: Yes: CTA Bilaterally ...Palpate: Yes: Soft. No: Firm/Rigid, Guarding, Hepatomegaly, Mass, Pulsatile Mass, Splenomegaly, Tenderness Labs: CBC, BMP 05/25/19 05:20 05/25/19 05:20 INR, PTT INR 1.08 (0.83-1.09) 05/20/19 19:55 Problem List - Problems (1) GI bleed Assessment/Plan: --resolved R> swicthed to Pantoprazole 40mg po bid continue to refuse GI w/u Code(s): K92.2 - GASTROINTESTINAL HEMORRHAGE, UNSPECIFIED Qualifiers: GI bleed type/associated pathology: melena Qualified Code(s): K92.1 - Melena
--- NOTE | 2019-05-25 11:42 | PN ---
Progress Note, Physician - Current Medication List Current Medications: Active Medications Albuterol/Ipratropium (Duoneb -) 1 amp NEB Q6H PRN PRN Reason: SHORTNESS OF BREATH Last Admin: 05/22/19 19:55 Dose: 1 amp Amlodipine Besylate (Norvasc -) 5 mg PO DAILY [facility] Last Admin: 05/25/19 10:18 Dose: 5 mg Ferrous Sulfate (Feosol -) 325 mg PO BIDWM [facility] Last Admin: 05/25/19 10:18 Dose: 325 mg Ceftriaxone Sodium 1 gm/ (Dextrose) 100 mls @ 200 mls/hr IVPB DAILY [facility]; Protocol Last Admin: 05/25/19 10:17 Dose: 200 mls/hr Insulin Aspart (Novolog Vial Sliding Scale -) 1 vial SQ TIDAC [facility]; Protocol Last Admin: 05/25/19 06:30 Dose: Not Given Levothyroxine Sodium (Synthroid -) 50 mcg PO DAILY@0700 [facility] Last Admin: 05/25/19 06:30 Dose: 50 mcg Pantoprazole Sodium (Protonix -) 40 mg PO BID [facility] Last Admin: 05/25/19 10:18 Dose: 40 mg - Objective Vital Signs: Vital Signs Temperature 98.2 F 05/25/19 02:00 Pulse Rate 47 L 05/25/19 07:00 Respiratory Rate 20 05/25/19 09:00 Blood Pressure 156/74 05/25/19 07:00 O2 Sat by Pulse Oximetry (%) 96 05/25/19 09:00 Cardiovascular: Yes: S1, S2 Respiratory: Yes: Regular, CTA Bilaterally Gastrointestinal: Yes: Normal Bowel Sounds, Soft Labs: CBC, BMP 05/25/19 05:20 05/25/19 05:20 INR, PTT INR 1.08 (0.83-1.09) 05/20/19 19:55 Assessment/Plan Problems (1) Anemia Assessment/Plan: -Guaiac positive -GI consult -PRBC 2 units -monitor H/H closely -NAUN -Started on Ferrous sulfate Code(s): D64.9 - ANEMIA, UNSPECIFIED Qualifiers: Anemia type: unspecified type Qualified Code(s): D64.9 - Anemia, unspecified (2) GI bleed Assessment/Plan: -Guaiac positive -GI consult -PRBC 2 units -monitor H/H closely Code(s): K92.2 - GASTROINTESTINAL HEMORRHAGE, UNSPECIFIED Qualifiers: GI bleed type/associated pathology: melena Qualified Code(s): K92.1 - Melena (3) UTI (urinary tract infection) Assessment/Plan: -UA+nitrites -UC pending Microbiology 05/20/19 20:00 Urine - Urine - Catheterized Urine Culture - Preliminary Lactose Fermenting Neg Bacilli -Started on Rocephin -afebrile -no leukocytosis Code(s): N39.0 - URINARY TRACT INFECTION, SITE NOT SPECIFIED Qualifiers: Urinary tract infection type: site unspecified Hematuria presence: without hematuria Qualified Code(s): N39.0 - Urinary tract infection, site not specified (4) HAILE (acute kidney injury) Assessment/Plan: -Nephrology consult -monitor trend -2/2 to UTI? Code(s): N17.9 - ACUTE KIDNEY FAILURE, UNSPECIFIED (5) Hypokalemia Assessment/Plan: -monitor trend and replace Code(s): E87.6 - HYPOKALEMIA (6) Hypothyroid Assessment/Plan: -Start levothyroxine 25 mcg po daily -repeat thyroid profile in 6-8 weeks Code(s): E03.9 - HYPOTHYROIDISM, UNSPECIFIED
--- NOTE | 2019-05-25 14:05 | PN ---
Progress Note, Physician History of Present Illness: Pt seen and examined at bedside. She appears comfortable. She denies shortness of breath. - Current Medication List Current Medications: Active Medications Albuterol/Ipratropium (Duoneb -) 1 amp NEB Q6H PRN PRN Reason: SHORTNESS OF BREATH Last Admin: 05/22/19 19:55 Dose: 1 amp Amlodipine Besylate (Norvasc -) 5 mg PO DAILY [facility] Last Admin: 05/25/19 10:18 Dose: 5 mg Ferrous Sulfate (Feosol -) 325 mg PO BIDWM [facility] Last Admin: 05/25/19 10:18 Dose: 325 mg Ceftriaxone Sodium 1 gm/ (Dextrose) 100 mls @ 200 mls/hr IVPB DAILY [facility]; Protocol Last Admin: 05/25/19 10:17 Dose: 200 mls/hr Insulin Aspart (Novolog Vial Sliding Scale -) 1 vial SQ TIDAC [facility]; Protocol Last Admin: 05/25/19 11:55 Dose: Not Given Levothyroxine Sodium (Synthroid -) 50 mcg PO DAILY@0700 [facility] Last Admin: 05/25/19 06:30 Dose: 50 mcg Pantoprazole Sodium (Protonix -) 40 mg PO BID [facility] Last Admin: 05/25/19 10:18 Dose: 40 mg - Objective Vital Signs: Vital Signs Temperature 98.2 F 05/25/19 02:00 Pulse Rate 47 L 05/25/19 07:00 Respiratory Rate 20 05/25/19 09:00 Blood Pressure 156/74 05/25/19 07:00 O2 Sat by Pulse Oximetry (%) 96 05/25/19 09:00 Constitutional: Yes: Calm Eyes: Yes: Conjunctiva Clear HENT: Yes: Atraumatic Neck: Yes: Supple Cardiovascular: Yes: S1, S2 Respiratory: Yes: CTA Bilaterally Gastrointestinal: Yes: WNL Genitourinary: Yes: WNL Musculoskeletal: Yes: WNL Edema: No Neurological: Yes: Oriented Labs: CBC, BMP 05/25/19 05:20 05/25/19 05:20 INR, PTT INR 1.08 (0.83-1.09) 05/20/19 19:55 Problem List - Problems (1) HAILE (acute kidney injury) Code(s): N17.9 - ACUTE KIDNEY FAILURE, UNSPECIFIED (2) Hypokalemia Code(s): E87.6 - HYPOKALEMIA (3) Hypothyroid Code(s): E03.9 - HYPOTHYROIDISM, UNSPECIFIED (4) Anemia Code(s): D64.9 - ANEMIA, UNSPECIFIED Qualifiers: Anemia type: unspecified type Qualified Code(s): D64.9 - Anemia, unspecified Assessment/Plan Current Medications Generic Name Dose Route Start Last Admin Trade Name Freq PRN Reason Stop Dose Admin Albuterol/Ipratropium 1 amp 05/22/19 00:10 05/22/19 19:55 Duoneb - NEB 1 amp Q6H PRN Administration SHORTNESS OF BREATH Amlodipine Besylate 5 mg 05/23/19 14:45 05/25/19 10:18 Norvasc - PO 5 mg DAILY [facility] Administration Ferrous Sulfate 325 mg 05/21/19 17:30 05/25/19 10:18 Feosol - PO 325 mg BIDWM [facility] Administration Ceftriaxone Sodium 1 gm/ 100 mls @ 200 mls/hr 05/21/19 10:00 05/25/19 10:17 Dextrose IVPB 200 mls/hr DAILY [facility] Administration Protocol Insulin Aspart 1 vial 05/23/19 07:00 05/25/19 11:55 Novolog Vial Sliding Scale - SQ Not Given TIDAC [facility] Protocol Levothyroxine Sodium 50 mcg 05/23/19 07:00 05/25/19 06:30 Synthroid - PO 50 mcg DAILY@0700 [facility] Administration Pantoprazole Sodium 40 mg 05/24/19 22:00 05/25/19 10:18 Protonix - PO 40 mg BID [facility] Administration Impression 1. HAILE 2. hypokalemia 3. uti 4. near syncope 5. hypothyroid with elevated tsh 6. DM 7. HTN 8. arthritis 9. 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
[2019-05-26] MEDS: INSULIN SLIDING SCALE (NOVOLOG) 1 VIAL SQ SCH ×3 (06:23→16:56)
[2019-05-26] MEDS: LEVOTHYROXINE NA 50 MCG TABLET (FP) PO SCH (06:28)
[2019-05-26 06:56] LABS: BASO % 0.7 % (0-2.0); EOS % 5.7 % (0-4.5); HEMATOCRIT 28.2 % (32.4-45.2); HEMOGLOBIN 9.1 GM/dL (10.7-15.3); LYMPH % 15.1 % (8-40); MCH 26.8 pg (25.7-33.7); MCHC 32.4 g/dl (32.0-36.0); MEAN CELL VOLUME 82.6 fl (80-96); MEAN PLT VOLUME 8.9 fl (7.5-11.1); MONO % 9.1 % (3.8-10.2); NEUT % 69.4 % (42.8-82.8); PLATELET COUNT 142 K/MM3 (134-434); RBC 3.41 M/mm3 (3.60-5.2); RDW 17.6 % (11.6-15.6)
[2019-05-26 07:13] LABS: ALBUMIN 3.6 g/dl (3.4-5.0); BILIRUBIN,TOTAL 0.4 mg/dL (0.2-1); BLOOD UREA NITROGEN 16.5 mg/dL (7-18); CALCIUM 8.6 mg/dL (8.5-10.1); CREATININE 1.5 mg/dL (0.55-1.3); POTASSIUM 3.5 mmol/L (3.5-5.1); TOT PROT 7.8 g/dl (6.4-8.2)
[2019-05-26] MEDS ORDERED: cefTRIAXone SODIUM 1 GM VIAL ONE (09:57)
[2019-05-26] MEDS ORDERED: DEXTROSE 5%-WATER 100 ML IVPB ONE (09:58)
[2019-05-26] MEDS: amLODIPine BESYLATE 5 MG TABLET (FP) PO SCH (10:00)
[2019-05-26] MEDS: CEFTRIAXONE 1 GM in DEXTROSE 5%-WATER 100 ML IVPB SCH (10:00)
[2019-05-26] MEDS: PANTOPRAZOLE 40 MG TABLET (FP) PO SCH ×2 (10:00→22:00)
[2019-05-26] MEDS: FERROUS SO4 325 MG TABLET (FP) PO SCH ×2 (10:00→17:01)
--- NOTE | 2019-05-26 11:00 | PN ---
Progress Note, Physician History of Present Illness: Pt seen and examined at bedside. She is awake and alert. She denies shortness of breath. - Current Medication List Current Medications: Active Medications Albuterol/Ipratropium (Duoneb -) 1 amp NEB Q6H PRN PRN Reason: SHORTNESS OF BREATH Last Admin: 05/22/19 19:55 Dose: 1 amp Amlodipine Besylate (Norvasc -) 5 mg PO DAILY [facility] Last Admin: 05/26/19 10:00 Dose: 5 mg Ferrous Sulfate (Feosol -) 325 mg PO BIDWM [facility] Last Admin: 05/26/19 10:00 Dose: 325 mg Ceftriaxone Sodium 1 gm/ (Dextrose) 100 mls @ 200 mls/hr IVPB DAILY [facility]; Protocol Last Admin: 05/26/19 10:00 Dose: 200 mls/hr Insulin Aspart (Novolog Vial Sliding Scale -) 1 vial SQ TIDAC [facility]; Protocol Last Admin: 05/26/19 06:23 Dose: Not Given Levothyroxine Sodium (Synthroid -) 50 mcg PO DAILY@0700 [facility] Last Admin: 05/26/19 06:28 Dose: 50 mcg Pantoprazole Sodium (Protonix -) 40 mg PO BID [facility] Last Admin: 05/26/19 10:00 Dose: 40 mg - Objective Vital Signs: Vital Signs Temperature 97.9 F 05/26/19 06:00 Pulse Rate 53 L 05/26/19 06:00 Respiratory Rate 20 05/26/19 09:00 Blood Pressure 135/59 L 05/26/19 06:00 O2 Sat by Pulse Oximetry (%) 100 05/26/19 09:00 Constitutional: Yes: Calm Eyes: Yes: Conjunctiva Clear HENT: Yes: Atraumatic Neck: Yes: Supple Cardiovascular: Yes: S1, S2 Respiratory: Yes: CTA Bilaterally Gastrointestinal: Yes: Normal Bowel Sounds, Soft Genitourinary: Yes: WNL Musculoskeletal: Yes: WNL Edema: No Neurological: Yes: Oriented Psychiatric: Yes: Oriented Labs: CBC, BMP 05/26/19 05:30 05/26/19 05:30 INR, PTT INR 1.08 (0.83-1.09) 05/20/19 19:55 Problem List - Problems (1) HAILE (acute kidney injury) Code(s): N17.9 - ACUTE KIDNEY FAILURE, UNSPECIFIED (2) Hypokalemia Code(s): E87.6 - HYPOKALEMIA (3) Hypothyroid Code(s): E03.9 - HYPOTHYROIDISM, UNSPECIFIED (4) Anemia Code(s): D64.9 - ANEMIA, UNSPECIFIED Qualifiers: Anemia type: unspecified type Qualified Code(s): D64.9 - Anemia, unspecified Assessment/Plan Current Medications Generic Name Dose Route Start Last Admin Trade Name Freq PRN Reason Stop Dose Admin Albuterol/Ipratropium 1 amp 05/22/19 00:10 05/22/19 19:55 Duoneb - NEB 1 amp Q6H PRN Administration SHORTNESS OF BREATH Amlodipine Besylate 5 mg 05/23/19 14:45 05/26/19 10:00 Norvasc - PO 5 mg DAILY [facility] Administration Ferrous Sulfate 325 mg 05/21/19 17:30 05/26/19 10:00 Feosol - PO 325 mg BIDWM [facility] Administration Ceftriaxone Sodium 1 gm/ 100 mls @ 200 mls/hr 05/21/19 10:00 05/26/19 10:00 Dextrose IVPB 200 mls/hr DAILY [facility] Administration Protocol Insulin Aspart 1 vial 05/23/19 07:00 05/26/19 06:23 Novolog Vial Sliding Scale - SQ Not Given TIDAC [facility] Protocol Levothyroxine Sodium 50 mcg 05/23/19 07:00 05/26/19 06:28 Synthroid - PO 50 mcg DAILY@0700 [facility] Administration Pantoprazole Sodium 40 mg 05/24/19 22:00 05/26/19 10:00 Protonix - PO 40 mg BID [facility] Administration Impression 1. HAILE 2. hypokalemia 3. uti 4. near syncope 5. hypothyroid with elevated tsh 6. DM 7. HTN 8. arthritis 9. anemia Plan - avoid nsaids - avoid nephrotoxins - follow repeat ua - bp improved this morning - anemia workup per primary team
--- NOTE | 2019-05-26 12:06 | PN ---
Progress Note, Physician Chief Complaint: patient admitted for GIB and hypokalemia new onset afib - Current Medication List Current Medications: Active Medications Albuterol/Ipratropium (Duoneb -) 1 amp NEB Q6H PRN PRN Reason: SHORTNESS OF BREATH Last Admin: 05/22/19 19:55 Dose: 1 amp Amlodipine Besylate (Norvasc -) 5 mg PO DAILY [facility] Last Admin: 05/26/19 10:00 Dose: 5 mg Ferrous Sulfate (Feosol -) 325 mg PO BIDWM [facility] Last Admin: 05/26/19 10:00 Dose: 325 mg Ceftriaxone Sodium 1 gm/ (Dextrose) 100 mls @ 200 mls/hr IVPB DAILY [facility]; Protocol Last Admin: 05/26/19 10:00 Dose: 200 mls/hr Insulin Aspart (Novolog Vial Sliding Scale -) 1 vial SQ TIDAC [facility]; Protocol Last Admin: 05/26/19 11:44 Dose: Not Given Levothyroxine Sodium (Synthroid -) 50 mcg PO DAILY@0700 [facility] Last Admin: 05/26/19 06:28 Dose: 50 mcg Pantoprazole Sodium (Protonix -) 40 mg PO BID [facility] Last Admin: 05/26/19 10:00 Dose: 40 mg - Objective Vital Signs: Vital Signs Temperature 97.9 F 05/26/19 06:00 Pulse Rate 53 L 05/26/19 06:00 Respiratory Rate 20 05/26/19 09:00 Blood Pressure 135/59 L 05/26/19 06:00 O2 Sat by Pulse Oximetry (%) 100 05/26/19 09:00 Constitutional: Yes: Calm Cardiovascular: Yes: Regular Rate and Rhythm, S1, S2 Respiratory: Yes: CTA Bilaterally Gastrointestinal: Yes: Normal Bowel Sounds, Soft Edema: No Neurological: Yes: Alert Labs: CBC, BMP 05/26/19 05:30 05/26/19 05:30 INR, PTT INR 1.08 (0.83-1.09) 05/20/19 19:55 Problem List - Problems (1) HAILE (acute kidney injury) Assessment/Plan: cretinie in simproving avoid nephrotoxin and nsaids Code(s): N17.9 - ACUTE KIDNEY FAILURE, UNSPECIFIED (2) GI bleed Assessment/Plan: resolved h/h stable ppi bid refusing GI work up per notes Code(s): K92.2 - GASTROINTESTINAL HEMORRHAGE, UNSPECIFIED Qualifiers: GI bleed type/associated pathology: melena Qualified Code(s): K92.1 - Melena (3) Hypothyroid Assessment/Plan: synthroid given recheck tsh in 3 week Code(s): E03.9 - HYPOTHYROIDISM, UNSPECIFIED (4) UTI (urinary tract infection) Assessment/Plan: rocephin day 5 Microbiology 05/20/19 20:00 Urine - Urine - Catheterized Urine Culture - Final Escherichia Coli will change to po abx on discharge Code(s): N39.0 - URINARY TRACT INFECTION, SITE NOT SPECIFIED Qualifiers: Urinary tract infection type: site unspecified Hematuria presence: without hematuria Qualified Code(s): N39.0 - Urinary tract infection, site not specified Assessment/Plan PT note seen 20 feet shuffling gait advise for snf placement
--- NOTE | 2019-05-26 12:25 | CONS ---
DATE OF CONSULTATION: 05/23/2019 CONSULTATION REQUESTED BY: Pietro Sales MD REASON FOR CONSULTATION: This 78-year-old female is being see at the request of Dr. Sales for anemia. She initially presented with confusion. She was anemic on admission. She received packed cells. She was somewhat confused. She denies smoking or drinking although her chart suggests that this is not the case. PAST MEDICAL HISTORY: Hypertension, hyperlipidemia, peripheral arterial disease, osteoarthritis and diabetes. PAST SURGICAL HISTORY: Cholecystectomy and section. SOCIAL HISTORY: The patient was born in [place] and has traveled from [place]. ALLERGIES: There are no known allergies. CURRENT MEDICATIONS: Ceftriaxone, albuterol, Norvasc, insulin, iron, Protonix and Synthroid. REVIEW OF SYSTEMS: The patient denies headaches, diplopia, epistaxis, dysphagia, shortness of breath, chest pain, nausea, vomiting, diarrhea and dysuria. PHYSICAL EXAMINATION: VITALS: Blood pressure 155/61, pulse 52, respiratory rate 28, afebrile. HEENT: ROSARIO, EOMs intact. Oropharynx is edentulous. No cervical or supraclavicular nodes. LUNGS: Decreased breath sounds bilaterally. CARDIOVASCULAR: Regular sinus rhythm. BREASTS: Left inverted nipple; right with no inversion. No breast masses. ABDOMEN: Somewhat distended. Right upper quadrant scar. EXTREMITIES: No significant lower extremity edema. LABORATORY: On admission, hemoglobin 6.5, hematocrit 21. After two units, hematocrit 29.7, hemoglobin 9.7. WBCs 5.4. MCV on admission was 88. Platelets currently 170,000. Differential with 71 polys, 17 lymphs, 7 monocytes. INR normal. Chemistries: 138, 3.0, . Creatinine 1.5 to 1.7. GFR of , calcium 8.7, iron 22, TIBC 510, iron saturation 4%, ferritin 5, total protein 7.9, albumin 3.6, free T4 low at 0.19. Urinalysis: There is 2+ leukocyte esterase. Urine with E. coli. Stool occult blood: Positive. IMPRESSION: An 78-year-old female who presents with anemia with a hemoglobin of 6.5, found to be iron deficient with serum iron saturation 4%, ferritin of 5, low TSH compatible with some degree of hyperthyroidism. Apparently, she has declined a GI workup. She has received two units of packed cells as well as Venofer. She can be placed on p.o. iron. Based upon the family's and the patient's wishes, she does require a GI workup consent obtained. GUILLERMINA CARDONA M.D. CINDI/[id number]
[2019-05-26 17:08] LABS: HGB SOLUBILITY Negative (Negative); Hgb C 0 % (0.0); Hgb F 0 % (0.0-2.0); Hgb S 0 % (0.0)
[2019-05-26] MEDS: ALBUTEROL SO4 2.5/IPRATROPIUM 0.5 INH SOL 3 ML VIAL.NEB. NEB PRN (18:59)
[2019-05-27] MEDS: INSULIN SLIDING SCALE (NOVOLOG) 1 VIAL SQ SCH ×3 (06:34→17:03)
[2019-05-27] MEDS: LEVOTHYROXINE NA 50 MCG TABLET (FP) PO SCH (06:35)
--- NOTE | 2019-05-27 08:32 | DS ---
Physical Examination Vital Signs: Vital Signs Temperature 97.8 F 05/27/19 02:00 Pulse Rate 55 L 05/27/19 06:49 Respiratory Rate 20 05/27/19 02:00 Blood Pressure 138/54 L 05/27/19 06:49 O2 Sat by Pulse Oximetry (%) 97 05/26/19 20:19 Cardiovascular: Yes: Regular Rate and Rhythm Respiratory: Yes: Regular, CTA Bilaterally Gastrointestinal: Yes: Normal Bowel Sounds, Soft. No: Tenderness Neurological: Yes: Alert, Oriented, Unsteady Gait, Weakness Labs: CBC, BMP 05/26/19 05:30 Discharge Summary Reason For Visit: UTI,GASTROINTESTINAL HEMORRHAGE,ANEMIA Current Active Problems HAILE (acute kidney injury) (Acute) Anemia (Acute) GI bleed (Acute) Hypokalemia (Acute) Hypothyroid (Acute) UTI (urinary tract infection) (Acute) Hospital Course: - Problems (1) HAILE (acute kidney injury) Assessment/Plan: creatinine is improving avoid nephrotoxin and nsaids Code(s): N17.9 - ACUTE KIDNEY FAILURE, UNSPECIFIED (2) GI bleed Assessment/Plan: resolved h/h stable ppi bid refusing GI work up per notes Code(s): K92.2 - GASTROINTESTINAL HEMORRHAGE, UNSPECIFIED Qualifiers: GI bleed type/associated pathology: melena Qualified Code(s): K92.1 - Melena (3) Hypothyroid Assessment/Plan: synthroid given recheck tsh in 3 week Code(s): E03.9 - HYPOTHYROIDISM, UNSPECIFIED (4) UTI (urinary tract infection) Assessment/Plan: rocephin day 5 Microbiology 05/20/19 20:00 Urine - Urine - Catheterized Urine Culture - Final Escherichia Coli will change to po abx on discharge Code(s): N39.0 - URINARY TRACT INFECTION, SITE NOT SPECIFIED Qualifiers: Urinary tract infection type: site unspecified Hematuria presence: without hematuria Qualified Code(s): N39.0 - Urinary tract infection, site not specified PT note seen 20 feet shuffling gait advise for snf placement Condition: Stable - Instructions Disposition: [facility] - Home Medications Comprehensive Discharge Medication List: Ambulatory Orders Albuterol 2.5/Ipratropium 0.5 [Duoneb -] 1 amp NEB Q6H PRN #0 amp 05/27/19 Amlodipine Besylate [Norvasc -] 5 mg PO DAILY tablet 05/27/19 Cefuroxime Axetil [Ceftin -] 500 mg PO Q12H #10 tablet 05/27/19 Ferrous Sulfate [Feosol] 325 mg PO BIDWM [facility] 05/27/19 Insulin Sliding Scale [Novolog Vial Sliding Scale -] 1 vial SQ TIDAC units Levothyroxine [Synthroid -] 50 mcg PO DAILY@0700 tablet 05/27/19 Pantoprazole Sodium [Protonix -] 40 mg PO BID tablet.ec 05/27/19
[2019-05-27] MEDS: FERROUS SO4 325 MG TABLET (FP) PO SCH ×2 (08:37→17:09)
[2019-05-27 09:08] LABS: ALBUMIN 3.4 g/dl (3.4-5.0); BILIRUBIN,TOTAL 0.4 mg/dL (0.2-1); BLOOD UREA NITROGEN 15.5 mg/dL (7-18); CALCIUM 8.6 mg/dL (8.5-10.1); CREATININE 1.3 mg/dL (0.55-1.3); POTASSIUM 3.6 mmol/L (3.5-5.1); TOT PROT 7.2 g/dl (6.4-8.2)
[2019-05-27] MEDS ORDERED: cefTRIAXone SODIUM 1 GM VIAL ONE (09:55)
[2019-05-27] MEDS ORDERED: DEXTROSE 5%-WATER 100 ML IVPB ONE (09:56)
[2019-05-27] MEDS: CEFTRIAXONE 1 GM in DEXTROSE 5%-WATER 100 ML IVPB SCH (09:59)
[2019-05-27] MEDS: PANTOPRAZOLE 40 MG TABLET (FP) PO SCH ×2 (10:00→21:31)
[2019-05-27] MEDS: amLODIPine BESYLATE 5 MG TABLET (FP) PO SCH (10:00)
--- NOTE | 2019-05-27 14:10 | PN ---
Progress Note, Physician History of Present Illness: Pt seen and examined at bedside. She is awake and alert. She denies shortness of breath. - Current Medication List Current Medications: Active Medications Amlodipine Besylate (Norvasc -) 5 mg PO DAILY [facility] Last Admin: 05/27/19 10:00 Dose: 5 mg Ferrous Sulfate (Feosol -) 325 mg PO BIDWM [facility] Last Admin: 05/27/19 08:37 Dose: 325 mg Ceftriaxone Sodium 1 gm/ (Dextrose) 100 mls @ 200 mls/hr IVPB DAILY [facility]; Protocol Last Admin: 05/27/19 09:59 Dose: 200 mls/hr Insulin Aspart (Novolog Vial Sliding Scale -) 1 vial SQ TIDAC [facility]; Protocol Last Admin: 05/27/19 11:52 Dose: Not Given Levothyroxine Sodium (Synthroid -) 50 mcg PO DAILY@0700 [facility] Last Admin: 05/27/19 06:35 Dose: 50 mcg Pantoprazole Sodium (Protonix -) 40 mg PO BID [facility] Last Admin: 05/27/19 10:00 Dose: 40 mg - Objective Vital Signs: Vital Signs Temperature 97.7 F 05/27/19 09:57 Pulse Rate 62 05/27/19 09:57 Respiratory Rate 18 05/27/19 09:57 Blood Pressure 159/83 05/27/19 09:57 O2 Sat by Pulse Oximetry (%) 96 05/27/19 09:00 Constitutional: Yes: Calm Eyes: Yes: Conjunctiva Clear HENT: Yes: Atraumatic Neck: Yes: Supple Cardiovascular: Yes: S1, S2 Respiratory: Yes: CTA Bilaterally Gastrointestinal: Yes: Soft Genitourinary: Yes: WNL Musculoskeletal: Yes: WNL Edema: No Neurological: Yes: Oriented Labs: CBC, BMP 05/26/19 05:30 05/27/19 06:09 INR, PTT INR 1.08 (0.83-1.09) 05/20/19 19:55 Problem List - Problems (1) HAILE (acute kidney injury) Code(s): N17.9 - ACUTE KIDNEY FAILURE, UNSPECIFIED (2) Hypokalemia Code(s): E87.6 - HYPOKALEMIA (3) Hypothyroid Code(s): E03.9 - HYPOTHYROIDISM, UNSPECIFIED (4) Anemia Code(s): D64.9 - ANEMIA, UNSPECIFIED Qualifiers: Anemia type: unspecified type Qualified Code(s): D64.9 - Anemia, unspecified Assessment/Plan Current Medications Generic Name Dose Route Start Last Admin Trade Name Jeff PRN Reason Stop Dose Admin Amlodipine Besylate 5 mg 05/23/19 14:45 05/27/19 10:00 Norvasc - PO 5 mg DAILY [facility] Administration Ferrous Sulfate 325 mg 05/21/19 17:30 05/27/19 08:37 Feosol - PO 325 mg BIDWM [facility] Administration Ceftriaxone Sodium 1 gm/ 100 mls @ 200 mls/hr 05/21/19 10:00 05/27/19 09:59 Dextrose IVPB 200 mls/hr DAILY [facility] Administration Protocol Insulin Aspart 1 vial 05/23/19 07:00 05/27/19 11:52 Novolog Vial Sliding Scale - SQ Not Given TIDAC [facility] Protocol Levothyroxine Sodium 50 mcg 05/23/19 07:00 05/27/19 06:35 Synthroid - PO 50 mcg DAILY@0700 [facility] Administration Pantoprazole Sodium 40 mg 05/24/19 22:00 05/27/19 10:00 Protonix - PO 40 mg BID [facility] Administration Impression 1. HAILE 2. hypokalemia 3. uti 4. near syncope 5. hypothyroid with elevated tsh 6. DM 7. HTN 8. arthritis 9. anemia Plan - renal function is improved - can see pt in office - UTI likely contributed to renal failure - avoid nsaids - avoid nephrotoxins - anemia workup per primary team
[2019-05-27 16:09] LABS: KAPPA LAMBDA RATIO URIN 24.93 (2.04-10.37)
[2019-05-27] MEDS ORDERED: ALBUTEROL SO4 2.5/IPRATROPIUM 0.5 INH SOL 3 ML VIAL.NEB. NEB PRN (17:07)
[2019-05-27] MEDS ORDERED: ALBUTEROL SO4 8 GM HFA INHALER IH PRN (17:07)
[2019-05-28] MEDS: LEVOTHYROXINE NA 50 MCG TABLET (FP) PO SCH (06:22)
[2019-05-28] MEDS: INSULIN SLIDING SCALE (NOVOLOG) 1 VIAL SQ SCH ×3 (06:22→17:38)
--- NOTE | 2019-05-28 08:06 | PN ---
Progress Note, Physician - Current Medication List Current Medications: Active Medications Albuterol Sulfate (Ventolin Hfa Inhaler -) 2 puff IH Q4H PRN PRN Reason: SHORT OF BREATH/WHEEZING Albuterol/Ipratropium (Duoneb -) 1 amp NEB Q6H PRN PRN Reason: SHORTNESS OF BREATH Amlodipine Besylate (Norvasc -) 5 mg PO DAILY [facility] Last Admin: 05/27/19 10:00 Dose: 5 mg Ferrous Sulfate (Feosol -) 325 mg PO BIDWM [facility] Last Admin: 05/27/19 17:09 Dose: 325 mg Ceftriaxone Sodium 1 gm/ (Dextrose) 100 mls @ 200 mls/hr IVPB DAILY [facility]; Protocol Last Admin: 05/27/19 09:59 Dose: 200 mls/hr Insulin Aspart (Novolog Vial Sliding Scale -) 1 vial SQ TIDAC [facility]; Protocol Last Admin: 05/28/19 06:22 Dose: Not Given Levothyroxine Sodium (Synthroid -) 50 mcg PO DAILY@0700 [facility] Last Admin: 05/28/19 06:22 Dose: 50 mcg Pantoprazole Sodium (Protonix -) 40 mg PO BID [facility] Last Admin: 05/27/19 21:31 Dose: 40 mg - Objective Vital Signs: Vital Signs Temperature 97.5 F L 05/28/19 05:49 Pulse Rate 71 05/28/19 05:49 Respiratory Rate 20 05/28/19 05:49 Blood Pressure 146/74 05/28/19 05:49 O2 Sat by Pulse Oximetry (%) 96 05/27/19 20:22 Cardiovascular: Yes: S1, S2 Respiratory: Yes: Regular, CTA Bilaterally Gastrointestinal: Yes: Normal Bowel Sounds, Soft. No: Tenderness Edema: No Neurological: Yes: Alert, Weakness Labs: CBC, BMP 05/26/19 05:30 05/27/19 06:09 INR, PTT INR 1.08 (0.83-1.09) 05/20/19 19:55 Assessment/Plan Problems (1) Anemia Assessment/Plan: -Guaiac positive -GI consult -S/P PRBC -STABLE NOW -monitor H/H closely -NAUN -Started on Ferrous sulfate Code(s): D64.9 - ANEMIA, UNSPECIFIED Qualifiers: Anemia type: unspecified type Qualified Code(s): D64.9 - Anemia, unspecified (2) GI bleed Assessment/Plan: -Guaiac positive -GI consult -S/P PRBC -monitor H/H closely Code(s): K92.2 - GASTROINTESTINAL HEMORRHAGE, UNSPECIFIED Qualifiers: GI bleed type/associated pathology: melena Qualified Code(s): K92.1 - Melena (3) UTI (urinary tract infection) Assessment/Plan: -UA+nitrites -UC pending Microbiology 05/20/19 20:00 Urine - Urine - Catheterized Urine Culture - Preliminary Lactose Fermenting Neg Bacilli -OFF Rocephin -afebrile -no leukocytosis Code(s): N39.0 - URINARY TRACT INFECTION, SITE NOT SPECIFIED Qualifiers: Urinary tract infection type: site unspecified Hematuria presence: without hematuria Qualified Code(s): N39.0 - Urinary tract infection, site not specified (4) HAILE (acute kidney injury) Assessment/Plan: -Nephrology consult -monitor trend -2/2 to UTI? Code(s): N17.9 - ACUTE KIDNEY FAILURE, UNSPECIFIED (5) Hypokalemia Assessment/Plan: -monitor trend and replace Code(s): E87.6 - HYPOKALEMIA (6) Hypothyroid Assessment/Plan: -Start levothyroxine 25 mcg po daily--TO 100 -repeat thyroid profile in 6-8 weeks Code(s): E03.9 - HYPOTHYROIDISM, UNSPECIFIED
[2019-05-28 08:55] LABS: ARTERIAL BLD GAS O2 SATURATION 99.2 % (95-98); ARTERIAL BLOOD GAS BASE EXCESS 6.5 meq/l (-2-2); ARTERIAL BLOOD GAS PCO2 48.6 mmHg (35-45); ARTERIAL BLOOD GAS PO2 127 mmHg (80-100); ARTERIAL BLOOD GAS pH 7.42 (7.35-7.45)
[2019-05-28 09:04] LABS: ALLENS TEST POSITIVE
[2019-05-28 09:15] LABS: BASO % 0.5 % (0-2.0); EOS % 3.7 % (0-4.5); HEMATOCRIT 27.3 % (32.4-45.2); HEMOGLOBIN 8.7 GM/dL (10.7-15.3); LYMPH % 10.6 % (8-40); MCH 26.5 pg (25.7-33.7); MEAN CELL VOLUME 82.6 fl (80-96); MEAN PLT VOLUME 8.7 fl (7.5-11.1); MONO % 8.6 % (3.8-10.2); NEUT % 76.6 % (42.8-82.8); PLATELET COUNT 129 K/MM3 (134-434); RBC 3.31 M/mm3 (3.60-5.2); RDW 17.9 % (11.6-15.6)
[2019-05-28] MEDS ORDERED: PT OWN MED DRAWER 7, Y5N ONE (09:15)
[2019-05-28] MEDS ORDERED: cefTRIAXone SODIUM 1 GM VIAL ONE (09:19)
[2019-05-28] MEDS ORDERED: DEXTROSE 5%-WATER 100 ML IVPB ONE (09:20)
[2019-05-28] MEDS: FERROUS SO4 325 MG TABLET (FP) PO SCH ×2 (09:22→17:39)
[2019-05-28] MEDS: CEFTRIAXONE 1 GM in DEXTROSE 5%-WATER 100 ML IVPB SCH (09:22)
[2019-05-28] MEDS: amLODIPine BESYLATE 5 MG TABLET (FP) PO SCH (09:22)
[2019-05-28] MEDS: PANTOPRAZOLE 40 MG TABLET (FP) PO SCH ×2 (09:22→22:03)
[2019-05-28] MEDS ORDERED: LEVOTHYROXINE NA 100 MCG TABLET (FP) PO SCH (09:43)
[2019-05-28 09:48] LABS: ALBUMIN 3.6 g/dl (3.4-5.0); BILIRUBIN,TOTAL 0.3 mg/dL (0.2-1); BLOOD UREA NITROGEN 17.6 mg/dL (7-18); CALCIUM 8.7 mg/dL (8.5-10.1); CREATININE 1.4 mg/dL (0.55-1.3); POTASSIUM 3.9 mmol/L (3.5-5.1); TOT PROT 7.7 g/dl (6.4-8.2)
--- NOTE | 2019-05-28 13:13 | PN ---
Progress Note, Physician History of Present Illness: Pt seen and examined a bedside. She is awake and appears comfortable. - Current Medication List Current Medications: Active Medications Albuterol Sulfate (Ventolin Hfa Inhaler -) 2 puff IH Q4H PRN PRN Reason: SHORT OF BREATH/WHEEZING Albuterol/Ipratropium (Duoneb -) 1 amp NEB Q6H PRN PRN Reason: SHORTNESS OF BREATH Amlodipine Besylate (Norvasc -) 5 mg PO DAILY [facility] Last Admin: 05/28/19 09:22 Dose: 5 mg Ferrous Sulfate (Feosol -) 325 mg PO BIDWM [facility] Last Admin: 05/28/19 09:22 Dose: 325 mg Ceftriaxone Sodium 1 gm/ (Dextrose) 100 mls @ 200 mls/hr IVPB DAILY [facility]; Protocol Last Admin: 05/28/19 09:22 Dose: 200 mls/hr Insulin Aspart (Novolog Vial Sliding Scale -) 1 vial SQ TIDAC [facility]; Protocol Last Admin: 05/28/19 12:18 Dose: Not Given Levothyroxine Sodium (Synthroid -) 100 mcg PO DAILY@0700 [facility] Pantoprazole Sodium (Protonix -) 40 mg PO BID [facility] Last Admin: 05/28/19 09:22 Dose: 40 mg - Objective Vital Signs: Vital Signs Temperature 97.4 F L 05/28/19 08:35 Pulse Rate 66 05/28/19 08:35 Respiratory Rate 19 05/28/19 08:35 Blood Pressure 154/53 L 05/28/19 08:35 O2 Sat by Pulse Oximetry (%) 95 05/28/19 08:47 Constitutional: Yes: Calm Eyes: Yes: Conjunctiva Clear HENT: Yes: Atraumatic Neck: Yes: Supple Cardiovascular: Yes: S1, S2 Respiratory: Yes: CTA Bilaterally Gastrointestinal: Yes: Soft, Abdomen, Obese Genitourinary: Yes: WNL Musculoskeletal: Yes: WNL Edema: No Neurological: Yes: Oriented Labs: CBC, BMP 05/28/19 09:02 05/28/19 09:02 INR, PTT INR 1.08 (0.83-1.09) 05/20/19 19:55 Problem List - Problems (1) HAILE (acute kidney injury) Code(s): N17.9 - ACUTE KIDNEY FAILURE, UNSPECIFIED (2) Hypokalemia Code(s): E87.6 - HYPOKALEMIA (3) Hypothyroid Code(s): E03.9 - HYPOTHYROIDISM, UNSPECIFIED (4) Anemia Code(s): D64.9 - ANEMIA, UNSPECIFIED Qualifiers: Anemia type: unspecified type Qualified Code(s): D64.9 - Anemia, unspecified Assessment/Plan Current Medications Generic Name Dose Route Start Last Admin Trade Name Freq PRN Reason Stop Dose Admin Albuterol Sulfate 2 puff 05/27/19 17:07 Ventolin Hfa Inhaler - IH Q4H PRN SHORT OF BREATH/WHEEZING Albuterol/Ipratropium 1 amp 05/27/19 17:07 Duoneb - NEB Q6H PRN SHORTNESS OF BREATH Amlodipine Besylate 5 mg 05/23/19 14:45 05/28/19 09:22 Norvasc - PO 5 mg DAILY CAROLEE Administration Ferrous Sulfate 325 mg 05/21/19 17:30 05/28/19 09:22 Feosol - PO 325 mg BIDWM CAROELE Administration Ceftriaxone Sodium 1 gm/ 100 mls @ 200 mls/hr 05/21/19 10:00 05/28/19 09:22 Dextrose IVPB 200 mls/hr DAILY CAROLEE Administration Protocol Insulin Aspart 1 vial 05/23/19 07:00 05/28/19 12:18 Novolog Vial Sliding Scale - SQ Not Given TIDAC [facility] Protocol Levothyroxine Sodium 100 mcg 05/28/19 09:43 Synthroid - PO DAILY@0700 CAROLEE Pantoprazole Sodium 40 mg 05/24/19 22:00 05/28/19 09:22 Protonix - PO 40 mg BID CAROLEE Administration Impression 1. HAILE 2. hypokalemia 3. uti 4. near syncope 5. hypothyroid with elevated tsh 6. DM 7. HTN 8. arthritis 9. 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
[2019-05-28 23:01] VITALS: BMI 28.6
[2019-05-29] MEDS: INSULIN SLIDING SCALE (NOVOLOG) 1 VIAL SQ SCH (06:37)
[2019-05-29] MEDS: FERROUS SO4 325 MG TABLET (FP) PO SCH (09:04)
[2019-05-29] MEDS: PANTOPRAZOLE 40 MG TABLET (FP) PO SCH (09:04)
[2019-05-29] MEDS: amLODIPine BESYLATE 5 MG TABLET (FP) PO SCH (09:05)
[2019-05-29] MEDS: CEFTRIAXONE 1 GM in DEXTROSE 5%-WATER 100 ML IVPB SCH (10:00)
[2019-05-29 10:07] VITALS: BP 166/79; PULSE 66; TEMP 97.8
== END 2019-05-29 11:34 | DRG 378 ==
LOC: JER 18:30 → JERBED 20:26 → J4W 05-21 20:13
PROVIDERS: ADMIT Family Medicine; ATTEND Family Medicine
PROC: 30233N1 Transfusion of Nonautologous Red Blood Cells into Peripheral Vein, Percutaneous Approach (ICD-10-PCS; principal; 2019-05-20)
PROC: 3E0F7GC Introduction of Other Therapeutic Substance into Respiratory Tract, Via Natural or Artificial Opening (ICD-10-PCS; 2019-05-22)
DX: K92.2 Gastrointestinal hemorrhage, unspecified (principal); N39.0 Urinary tract infection, site not specified; N17.9 Acute kidney failure, unspecified; I31.3 Pericardial effusion (noninflammatory); D50.0 Iron deficiency anemia secondary to blood loss (chronic); E87.6 Hypokalemia; I10 Essential (primary) hypertension; E11.40 Type 2 diabetes mellitus with diabetic neuropathy, unspecified; E03.9 Hypothyroidism, unspecified; E04.9 Nontoxic goiter, unspecified; E78.5 Hyperlipidemia, unspecified; J45.909 Unspecified asthma, uncomplicated; E66.9 Obesity, unspecified; Z68.28 Body mass index [BMI] 28.0-28.9, adult; Z79.4 Long term (current) use of insulin; M19.90 Unspecified osteoarthritis, unspecified site; R32 Unspecified urinary incontinence; B96.29 Other Escherichia coli [E. coli] as the cause of diseases classified elsewhere; I48.91 Unspecified atrial fibrillation
CPT/HCPCS: 36415; 36430; 36511; 36600; 71045-TC-FY; 76775-TC; 80048; 80053; 80061; 81003; 82272; 82550; 82553; 82607; 82728; 82746; 82784; 82803; 82962; 83021; 83036; 83540; 83550; 83615; 83721; 83735; 83883; 84100; 84155; 84165; 84439; 84443; 84484; 85025; 85610; 85660; 86850; 86900; 86901; 86922; 87086; 87186; 90670; 93005; 93010; 93306-TC; 94640; 97116-GP; 97161-GP; 99285-25; J7030; P9038; P9058